=== PATIENT | male | born 1960 | race Caucasian/White ===

== ENCOUNTER 2018-05-02 11:23 | Day surgery (SDC) | payer MEDICARE, MEDICAID, SELFPAY ==
[2018-05-02 11:52] VITALS: BP 140/90; PULSE 97; RESP 14; TEMP 36.2; O2SAT 97; BMI 42.7
[2018-05-02 12:10] LABS: Bedside Glucose 158 mg/dL (70-110)
--- NOTE | 2018-05-02 12:17 | HP.PCM_ITS ---
History and Physical Date of Admission: 05/02/18 HISTORY AND PHYSICAL ? Zafar Atkinson 1960 ? REFERRING PHYSICIAN: ??Steffi Antonio MD ? CHIEF COMPLAINT: ??colon consult ? HPI: The patient is a 58 year old male referred for endoscopy. ?Zafar notes no history of colon complaints. ?He denies any change in bowel habits, weight perrin ges, black tarry stools or abdominal pain. ?Denies family history colon cancer. ?Patient does note two past isolated instances of bright red blood that occurred with a bowel movement, noted on paper with wiping and in toilet bowel. ?States he went to the emergency department, was examined and told the bleeding was due to hemorrhoids. ?He was given a cream which he uses if these flare up. ?He denie s any recent blood or any anorectal pain with bowel movements. ? The patient ?notes no history of upper GI complaints. ?Zafar has not?undergone prior endoscopy. ?The patient is being seen by me today at the request of Dr. Antonio?for my opinion and advice regarding screening colonoscopy. ? Patient's past medical history is significant for abdominal aortic aneurysm for which he underwent surgery to repair one year ago. ?He states he did very well following his surgery. ?Additional medical history significant for diabetes mellitus, back injury, hyperlipidemia, hypertension, emphysema, obesity. ?He denies any chest pain or recent hospitalizations. ?Denies problems with sedation in the past. ? ? PAST MEDICAL HISTORY PAST MEDICAL HISTORY Diagnosis Date ? AAA (abdominal aortic aneurysm) (HCC) ? ? Back injury 2009 ? work related ? DM (diabetes mellitus) (HCC) ? ? Former smoker ? ? HTN (hypertension) ? ? Hyperlipidemia ? ? Morbid obesity (HCC) ? ? Other emphysema (HCC) ? ? mild Emphysema ? Spondylosis, lumbosacral ? ? L4-L5 ? PAST SURGICAL HISTORY PAST SURGICAL HISTORY Procedure Laterality Date ? CARPAL TUNNEL ? 90's ? bilateral ? INCISE FINGER TENDON SHEATH Left 08/28/2016 ? Left middle and ring trigger finger releases ? REM LESIO TRUNK,ARM,LEG 1.1 -2.0CM ? 03/02/14 ? Exc. lesion left back/ablate left posterior ear ? ? ? CURRENT MEDICATIONS ? Current Outpatient Prescriptions: losartan (COZAAR) 50 mg tablet Take 1 tablet by mouth once daily. losartan (COZAAR) 50 mg tablet Take 1 tablet by mouth once daily. Hydrochlorothiazide 12.5 mg capsule Take 1 capsule by mouth once daily. cyclobenzaprine (FLEXERIL) 10 mg tablet Take 1 tablet by mouth twice daily as needed. metoprolol tartrate, short acting, (LOPRESSOR) 25 mg tablet Take 0.5 tablets by mouth every 12 hours. metFORMIN ER (GLUCOPHAGE XR) 500 mg 24 hr tablet Take 2 tablets by mouth twice daily. tiZANidine (ZANAFLEX) 4 mg tablet Take 1 tablet by mouth every 8 hours as needed (muscle spasms). EPINEPHrine (EPIPEN 2-NAZ) 0.3 mg/0.3 mL auto-injector Inject 0.3 mL intramuscularly as needed. liraglutide (VICTOZA 2-NAZ) 0.6 mg/0.1 mL (18 mg/3 mL) pnij Inject 1.2 mg subcutaneously once daily. ranitidine (ZANTAC) 150 mg tablet Take 1 tablet by mouth twice daily. gabapentin (NEURONTIN) 300 mg capsule Take 2 capsules by mouth daily at bedtime for 90 days. amLODIPine (NORVASC) 2.5 mg tablet Take 1 tablet by mouth once daily. pantoprazole DR (PROTONIX) 40 mg tablet Take 1 tablet by mouth once daily. Lovastatin 40 mg tablet Take 2 tablets by mouth daily at bedtime. For cholesterol. Clobetasol Propionate 0.05 % gel Apply 1 application to affected area once daily. lidocaine (LIDODERM) 5 % Apply 1 Patch as directed every 12 hours. Remove old patch prior to placing new patch. Location: lower back and right hip COMPOUNDED PRESCRIPTION Diabetic shoes- I pair selenium sulfide (SELSUN BLUE) 1 % sham Apply 1 application to affected area once daily. hydrocortisone (ALA-MELISSA) 1 % cream Apply 1 application to affected area twice daily. oxyCODONE IR (ROXICODONE) 5 mg immediate release tablet Take 1-2 tablets by mouth every 3 hours as needed. blood sugar diagnostic (FREESTYLE LITE STRIPS) test strip Use as instructed 6-8 times daily DX 250.00 Blood-Glucose Meter (FREESTYLE LITE METER) monitoring kit 1 Each as needed. DX 250.00 Lancets lancets Use as instructed 6-8 times daily DX 250.00 aspirin, enteric coated 81 mg EC tablet Take 81 mg by mouth once daily. ? No current facility-administered medications for this visit. ? ALLERGIES: Naprosyn [Naproxen]; Lisinopril-Hydrochlorothiazide ? PERSONAL HISTORY: SOCIAL HISTORY Social History ??Marital status: ?Spouse name: ?Years of education: ?Number of children: ? Social History Main Topics ??Smoking status: Former Smoker ?Packs/day: 1.00 ?Years: 32.00 ?Types: Cigarettes ?Quit date: 10/02/2011 ??Smokeless tobacco: Never Used ?Alcohol use: No ?Drug use: No ?Sexual activity: Yes ?Partners with: Male ? FAMILY HISTORY: FAMILY HISTORY FAMILY HISTORY Problem Relation Age of Onset ? Diabetes Mother ? ? Prostate Cancer Father ? ? Diabetes Maternal Grandmother ? ? Diabetes Sister ? ? Diabetes Son ?HTN ? ? REVIEW OF SYMPTOMS: ??The review of systems data was entered by the nurse and reviewed by me ? Nursing Notes: Domingo Granados LPN ?02/23/2018 10:23 AM ?Signed REVIEW OF SYSTEMS: ?General:???The patient denies fatigue, denies weight loss, denies weight gain, denies feeling hot, and denies feelings of cold. ?Eyes: ?The patient denies glaucoma, denies eye injury/surgery, wears glasses or contacts. ?Ear/Nose/Throat: ?The patient denies allergies, denies hayfever, denies ear infections, and denies bloody noses. ?Cardiovascular: ?The patient denies chest pain, denies heart disease, NOTES high blood pressure,denies cardiac stent, denies prior heart attack, denies irregular heart beat, NOTES high cholesterol, ?denies poor circulation, denies heart failure, other cardiac issues, denies claudication, denies cold feet, denies peripheral arterial stent. ?Respiratory: ?The patient denies tuberculosis, denies pneumonia, denies frequent cough, denies pulmonary embolism, denies shortness of breath, and denies coughing up blood. ?Gastrointestinal: ?The patient denies difficulty swallowing, denies acid reflux, denies ulcers, denies vomiting, denies jaundice/hepatitis, denies gallbladder problems, denies black or tarry stools, NOTES hemorrhoids, denies bleeding from rectum, denies diverticulitis, NOTES constipation, NOTES diarrhea, denies loss of stool control, and denies hernias. ?Kidney/Bladder: ?The patient denies kidney stones, denies urine infections, and denies bloody urine. ?Skin: ?The patient denies a history of skin cancer, denies bleeding/changing moles, and denies a history of skin rash. ?Neurologic: ?The patient denies a history of epilepsy/convulsions, denies headaches, denies head/spinal injuries, and denies stroke/TIA. ?Psychiatric: ?The patient denies psychiatric medications, denies depression, and denies voices, denies substance abuse. ?Endocrine: ?The patient denies thyroid disorders, NOTES diabetes, and denies hormonal problems. ?Hematologic: ?The patient denies a history of bruising, denies bleeding, and denies anemia, denies blood clots. ?Infections: ?The patient denies a history of measles and mumps, denies rheumatic fever, and denies sexually transmitted diseases. ?Musculoskeletal: ?The patient NOTES back pain/injury, NOTES back problems, denies sciatica, denies knee/foot trouble, denies arthritis, or denies gout. ? ? When was patient's last Mammogram screening? N/A ? ?Last Colonoscopy: ?na ? Domingo Granados LPN? I have confirmed and edited as necessary, the PFSH and ROS obtained by others. ? ? PHYSICAL EXAMINATION: ? General: ?The patient is 58 year old male, well nourished, well hydrated in no acute distress. ?The patient is oriented to time, place, and person. ? VITALS: Blood pressure 122/70, pulse 96, weight 133.4 kg (294 lb).?Body mass index is 41.59 kg/m?.? ? HEENT: ?Normal cephalic, ataumatic, pupils are equally round, sclera are anicteric, mucous membranes are moist, oropharynx is clear. ?Neck has no masses, asymmetry or lymphadenopathy. ? ? Respiratory: ?Clear to auscultation and percussion. ?Normal respiratory excursion and pattern. ? Cardiac: ?Examination is regular rate and rhythm. ? Abdominal exam: ?Soft, nontender, ?with no palpable masses. ?No hepatosplenomegaly. ?No palpable hernias. ? Rectal exam: exam deferred ? Extremities: ?no clubbing, cyanosis or edema. ?No adenopathy. ? Other: ? LABORATORY VALUES: As Noted ? RADIOLOGIC STUDIES: ?As Noted ? Assessment ? IMPRESSION: encounter for screening colonoscopy. ?History of hemorrhoids ? PLAN: ?We will?plan for?perform lower?endoscopy, to be done with MAC due to medical comorbidities. ??We discussed the risks and benefits of the planned endoscopy. ?I have informed the patient that complications can occur including failure to complete the endoscopy and perforation. ?The patient had the opportunity to ask questions concerning the planned endoscopy. ?My staff has also explained the procedure to the patient in understandable terms and has given the patient printed material concerning the procedure. ?The patient freely consents to surgery. ? I plan to use golytely bowel preparation for endoscopy ? The patient has medical comorbidities for which I plan to perform the procedure under monitored anesthetic care. ? Diagnoses: (Z12.11) Encounter for screening for malignant neoplasm of colon ?(primary encounter diagnosis) ? My findings have been communicated to Dr. Antonio?via shared medical record. ?This note will be forwarded to Dr. STEFFI ANTONIO MD. ?? Return to Clinic: The patient is instructed to follow-up with me 1 week post operatively. ? Josee Houston PA-C
--- NOTE | 2018-05-02 12:30 | COLBX_PTH ---
PATIENT: BRAEDEN SAAVEDRA Jr. LOC: EN U#:[id number] AGE/SX: 58/M ROOM: RE05/02/[address]: Dr. Mp Barajas MD : 1960 BED: DIS: 05/02/2018 SPEC #: [id number] RECD: 05/02/18 15:14 STATUS: DEAN DOMINIC #: [id number] ELENA: 05/02/18 12:[address]: Mp Barajas DEPT: SURGICAL PATHOLOGY RECD BY: Everette Gonzalez ENTERED: 05/03/18 11:02 SP TYPE: COLON BX OTHR DR: Dr. Marga Pérez MD Tissues: Transverse colon Procedures: Surgery Specimen Level IV HEADER OPERATION: Colonoscopy (MAC) PRE-OP DIAGNOSIS: Screening TISSUE SUBMITTED: Distal transverse colon polyp MICROSCOPIC DIAGNOSIS Distal transverse colon polyp, biopsy: Fragments of colonic mucosa with hyperplastic change. Focal changes consistent with inflammatory polyp. AM:scott 11/14/18 MICROSCOPIC DESCRIPTION Slides are reviewed. GROSS DESCRIPTION Received is one container labeled with the patient name and designated distal transverse colon polyp. The specimen consists of multiple irregular fragment of light roy soft tissue that together measure 0.6 x 0.5 x 0.3 cm. The specimen is totally submitted in one cassette. KIMBERLY:scott 05/03/18 TC: 5 CPT: 41797
[2018-05-02 13:26] VITALS: BP 107/62; BP 140/90; PULSE 91; RESP 16; TEMP 36.4; O2SAT 96
--- NOTE | 2018-05-02 13:28 | OP.ENDO_ITS ---
Patient Name: Zafar Atkinson Procedure Date: 05/02/2018 12:58 PM Date of : 1960 Age: 58 Procedure: Colonoscopy Indications: Screening for colorectal malignant neoplasm Providers: Mp Barajas MD Medicines: Monitored Anesthesia Care Patient Profile: This is a 58 year old male. Refer to note in patient chart for documentation of history and physical. Last Colonoscopy: none. The patient's first colonoscopy is today. Complications: No immediate complications. Procedure: Pre-Anesthesia Assessment: - Prior to the procedure, a History and Physical was performed, and patient medications and allergies were reviewed. The patient is competent. The risks and benefits of the procedure and the sedation options and risks were discussed with the patient. All questions were answered and informed consent was obtained. Patient identification and proposed procedure were verified by the physician, the nurse and the brake lining finisher asbestos in the procedure room. Mental Status Examination: alert and oriented. Airway Examination: normal oropharyngeal airway and neck mobility. Respiratory Examination: clear to auscultation. CV Examination: normal. Prophylactic Antibiotics: The patient does not require prophylactic antibiotics. Prior Anticoagulants: The patient has taken no previous anticoagulant or antiplatelet agents. ASA Grade Assessment: III - A patient with severe systemic disease. After reviewing the risks and benefits, the patient was deemed in satisfactory condition to undergo the procedure. The anesthesia plan was to use monitored anesthesia care (MAC). Immediately prior to administration of medications, the patient was re-assessed for adequacy to receive sedatives. The heart rate, respiratory rate, oxygen saturations, blood pressure, adequacy of pulmonary ventilation, and response to care were monitored throughout the procedure. The physical status of the patient was re-assessed after the procedure. After I obtained informed consent, the scope was passed under direct vision. Throughout the procedure, the patient's blood pressure, pulse, and oxygen saturations were monitored continuously. The Colonoscope was introduced through the anus and advanced to the cecum, identified by the appendiceal orifice, ileocecal valve and palpation. The colonoscopy was performed without difficulty. The patient tolerated the procedure well. The quality of the bowel preparation was good. Scope In: 1:10:41 PM Scope Withdrawal Time 0 hours 8 minutes 30 seconds Scope Out: 1:22:53 PM Total Procedure Duration Time 0 hours 12 minutes 12 seconds Findings: The perianal and digital rectal examinations were normal. A 8 mm polyp was found in the distal transverse colon. The polyp was sessile. The polyp was removed with a hot snare. Resection and retrieval were complete. The exam was otherwise without abnormality. The retroflexed view of the distal rectum and anal verge was normal and showed no anal or rectal abnormalities. Impression: - One 8 mm polyp in the distal transverse colon, removed with a hot snare. Resected and retrieved. - The examination was otherwise normal. - The distal rectum and anal verge are normal on retroflexion view. Recommendation: - Discharge patient to home. - Resume previous diet. - Continue present medications. - Telephone physician machine operator assistant for pathology results in 1 week. - Repeat colonoscopy is recommended. The colonoscopy date will be determined after pathology results from today's exam become available for review. Procedure Code(s): --- Professional --- 58015, Colonoscopy, flexible; with removal of tumor(s), polyp(s), or other lesion(s) by snare technique CPT copyright 2017 [employer]. All rights reserved. The codes documented in this report are preliminary and upon bag valver review may be revised to meet current compliance requirements. Mp Barajas MD 05/02/2018 1:28:31 PM This report has been signed electronically. Number of Addenda: 0 Note Initiated On: 05/02/2018 12:58 PM
[2018-05-02 13:30] VITALS: BP 104/91; BP 140/90; PULSE 98; RESP 16; O2SAT 95
[2018-05-02 13:35] VITALS: BP 129/66; BP 140/90; PULSE 97; RESP 16; O2SAT 95
[2018-05-02 13:41] VITALS: BP 134/85; BP 140/90; PULSE 91; RESP 16; TEMP 36.5; O2SAT 96
[2018-05-02 13:59] VITALS: BP 140/90
== END 2018-05-02 14:12 | disposition home or self-care (01) ==
LOC: EN 11:28 → AC 11:29
PROVIDERS: Family Provider Internal Medicine; PCP Internal Medicine; Referring Provider Surgery; Visit Provider Surgery
PROC: 0DJD8ZZ Inspection of Lower Intestinal Tract, Via Natural or Artificial Opening Endoscopic (ICD-10-PCS; CPT 45378; principal; 2018-05-02 12:25)
DX: Z12.11 Encounter for screening for malignant neoplasm of colon (principal); K63.5 Polyp of colon; K21.9 Gastro-esophageal reflux disease without esophagitis; E11.9 Type 2 diabetes mellitus without complications; E78.5 Hyperlipidemia, unspecified; I10 Essential (primary) hypertension; Z87.891 Personal history of nicotine dependence; E66.01 Morbid (severe) obesity due to excess calories; Z68.41 Body mass index [BMI] 40.0-44.9, adult; J43.8 Other emphysema; Z79.84 Long term (current) use of oral hypoglycemic drugs; Z79.82 Long term (current) use of aspirin; Z79.891 Long term (current) use of opiate analgesic; Z79.899 Other long term (current) drug therapy
CPT/HCPCS: 45384; 82962; 88305; J7120

== ENCOUNTER 2018-09-21 22:16 | Emergency (ER) | payer MEDICARE, MEDICAID, SELFPAY ==
[2018-09-21 22:18] VITALS: BP 160/81; PULSE 98; RESP 16; TEMP 36.6; O2SAT 92; BMI 43.2
--- NOTE | 2018-09-21 23:33 | ED.VISSUMM ---
- ER Visit Summary Date of Service: 09/21/18 Chief Complaint: [Sore throat] History of Present Illness: The patient is a 58 M [presents with a sore throat x3 or 4 days. Patient states he had a hard time sleeping last night secondary to pain. He has had no cough. He denies fever although subjectively he claims that he has felt hot. Patient denies any sick contacts. He denies ear pain. He denies congestion. Patient complains of painful swallowing of food and water.] Physical Examination: [HEENT-PERRLA, EOMI. Cranial nerves II through XII grossly intact. TMs clear. Mucous membranes moist. No adenopathy. Patient has some pharyngeal erythema. Tonsils are small and no exudates noted. Uvula is in the midline. No trismus. No tenderness over the trachea with movement. Cardiovascular-regular rate and rhythm without murmur or ectopy Lungs-clear to auscultation, chest wall stable without crepitus or subcu emphysema Abdomen-normoactive bowel sounds, soft, nontender, no rebound or rigidity, no peritoneal signs. Extremities-intact ?4, normal range of motion, normal pulses, atraumatic] Test Results: [Rapid strep screen was negative] Emergency Department Course and Treatment: Patient was medicated with amoxicillin and [place]. Patient had a throat culture sent. [] Treatment Plan: [Patient will be treated with amoxicillin and [place]. Patient understands this may be a viral illness and antibiotics may not help however there are other bacteria besides group A strep that could be responsible for his pharyngitis. Patient would prefer not to wait until culture results have returned to determine antibiotic usage.] Disposition: [Discharged home in stable condition. Patient advised to return if difficulty swelling on secretions or condition should worsen anyway.] Impression: [Pharyngitis-etiology uncertain] This note was generated with INNOBI dictation software. It may contain incorrect words, spelling, and punctuation that were not noted in review of the chart prior to signing ED Disposition - Plan for ED Patient: Referrals: Marga Pérez MD [Primary Care Provider] -
--- NOTE | 2018-09-21 23:36 | ED.DCSUM_ITS ---
- ER Visit Summary Date of Service: 09/21/18 Chief Complaint: [Sore throat] History of Present Illness: The patient is a 58 M [presents with a sore throat x3 or 4 days. Patient states he had a hard time sleeping last night secondary to pain. He has had no cough. He denies fever although subjectively he claims that he has felt hot. Patient denies any sick contacts. He denies ear pain. He denies congestion. Patient complains of painful swallowing of food and water.] Physical Examination: [HEENT-PERRLA, EOMI. Cranial nerves II through XII grossly intact. TMs clear. Mucous membranes moist. No adenopathy. Patient has some pharyngeal erythema. Tonsils are small and no exudates noted. Uvula is in the midline. No trismus. No tenderness over the trachea with movement. Cardiovascular-regular rate and rhythm without murmur or ectopy Lungs-clear to auscultation, chest wall stable without crepitus or subcu emphysema Abdomen-normoactive bowel sounds, soft, nontender, no rebound or rigidity, no peritoneal signs. Extremities-intact ?4, normal range of motion, normal pulses, atraumatic] Test Results: [Rapid strep screen was negative] Emergency Department Course and Treatment: Patient was medicated with amoxicillin and [place]. Patient had a throat culture sent. [] Treatment Plan: [Patient will be treated with amoxicillin and [place]. Patient understands this may be a viral illness and antibiotics may not help however there are other bacteria besides group A strep that could be responsible for his pharyngitis. Patient would prefer not to wait until culture results have r eturned to determine antibiotic usage.] Disposition: [Discharged home in stable condition. Patient advised to return if difficulty swelling on secretions or condition should worsen anyway.] Impression: [Pharyngitis-etiology uncertain] This note was generated with [employer] dictation software. It may contain incorrect words, spelling, and punctuation that were not noted in review of the chart prior to signing ED Disposition - Plan for ED Patient: Referrals: Marga Pérez MD [Primary Care Provider] -
--- NOTE | 2018-09-21 23:36 | ED.DEP ---
ED Disposition - Plan for ED Patient: Instructions: ED Pharyngitis Viral Report Pending Prescriptions: Hydrocodone Bitart/Apap 5-325 [Wilson 5MG-325MG] 1 tab PO Q4H PRN PRN 2 Days #10 tab PRN Reason: Pain Amoxicillin 500 mg PO TID #30 tab Referrals: Marga Pérez MD [Primary Care Provider] - 3-5 Days
[2018-09-21] MEDS: AMOXICILLIN 500 MG CAPSULE PO (23:56)
[2018-09-21] MEDS: HYDROcodone Bitartrate/Apap 5/325 Tablet PO (23:56)
[2018-09-21 23:58] VITALS: BP 147/70; PULSE 81; RESP 18; O2SAT 95
== END 2018-09-21 23:59 | disposition home or self-care (01) ==
PROVIDERS: Emergency Provider Emergency Medicine; Family Provider Internal Medicine; PCP Internal Medicine
DX: J02.9 Acute pharyngitis, unspecified (principal); E11.9 Type 2 diabetes mellitus without complications; Z79.84 Long term (current) use of oral hypoglycemic drugs
CPT/HCPCS: 87070; 87880; 99283

== ENCOUNTER 2019-03-03 19:05 | Emergency (ER) | payer MEDICARE, MEDICAID, SELFPAY ==
[2019-03-03 19:06] VITALS: BP 131/79; PULSE 91; RESP 17; TEMP 36.7; O2SAT 95; BMI 41.7
[2019-03-03 19:18] VITALS: O2SAT 96
--- NOTE | 2019-03-03 19:25 | ED.VIS.GEN ---
History of Present Illness Chief Complaint: Shortness of Breath Informant: Patient Narrative: Patient presents with increased cough and shortness of breath. This is been going on for about 2 weeks his family has had upper respiratory symptoms including himself however his did not resolve. He denies any fever chills, no nausea or vomiting. He did have a history of early COPD but quit smoking and has not had problems since Past Medical History - Allergies and Home Meds Allergies/Adverse Reactions: Allergies lisinopril Allergy (Verified 03/03/19 19:06) Hives naproxen Allergy (Verified 03/03/19 19:06) Hives Primary Care Physician: Marga Pérez MD [Primary Care Provider] - Past Medical History: - - Reviewed in [employer] Surgical History: - - Bilateral carpal tunnel surgery Smoking Status: Former smoker - Family History Paternal Family History: Reports: Cancer Maternal Family History: Reports: Cancer Review of Systems All systems negative except as indicated General: Denies: Fever Cardiovascular: Denies: Chest pain Respiratory: Reports: Dyspnea, Cough, Sputum Gastrointestinal: Denies: Abdominal pain, Nausea Musculoskeletal: Denies: Myalgias Skin: Denies: Rash Neurological: Denies: Headache, Weakness Physical Exam Vital Signs/Narrative: Vital Signs Temp Pulse Resp BP Pulse Ox 03/03/19 19:06 98.1 F 91 17 131/79 H 95 General: Well nourished, Well developed ENT: Moist mucous membranes Neck: Supple Cardiovascular: Regular rate, Regular rhythm Respiratory: No distress, - - Lungs are mostly clear, however I do appreciate some bronchial breath sounds Back: Nontender Extremities: No edema Skin: Normal color, No rash Neurological: Normal Strength, Normal Sensation Diagnostic/Tx/Re-eval - Rhythm Strip Rhythm Strip: Sinus Rhythm Rate: 83 Ectopy: None - EKG Initial EKG Interpretation: Sinus Rhythm, - - Normal HI normal QTC intervals. No ST changes. Normal EKG Interpreted by emergency doctor - Medical Decision Making Patient has a normal work-up. X-ray is negative. Patient received DuoNeb in the emergency department I will treat him with doxycycline and albuterol for home. He appears well he has normal vitals is not hypoxic and likely has bronchitis I am just worried about progression to pneumonia. Disposition discharge stable condition ED Disposition - Plan for ED Patient: Disposition: Home or Assisted Living Diagnosis: Bronchitis Instructions: BRONCHITIS, Antiobiotic Treatment (Adult) Prescriptions: Doxycycline 100 mg PO DAILY 10 Days #19 cap Prescription Printed Albuterol Inhaler [Ventolin Hfa] 2 puff INHALATION Q4H PRN PRN #1 inhaler PRN Reason: Wheezing Referrals: Marga Pérez MD [Primary Care Provider] - 3-5 Days if not improving
--- NOTE | 2019-03-03 19:30 | RAD_ITS ---
STUDY: X-RAY CHEST REASON FOR EXAM: Male, 59 years old. Cough and shortness of breath times one and half weeks TECHNIQUE: PA and lateral views of the chest. COMPARISON: Prior study of 11/22/2015 FINDINGS: athletic monitor leads are present. The lungs are clear and expanded. There is no demonstrated pleural abnormality. Normal size heart. Normal mediastinum and mercedes. Normal visualized pulmonary arteries. Normal visualized aortic arch and descending thoracic aorta. Normal visualized thoracic spine. Normal visualized ribs, clavicles, and shoulders. There is no demonstrated abnormality of the visualized soft tissue structures of the upper abdomen. RAD/Chest PA and Lateral IMPRESSION: Normal x-ray examination of the chest. Electronically Signed: Ernesto Turcios MD at 19:51 EDT , Service support ,
--- NOTE | 2019-03-03 19:30 | EKG12_ITS ---
Test Reason : SOB Blood Pressure : / mmHG Vent. Rate : 083 BPM Atrial Rate : 083 BPM P-R Int : 140 ms QRS Dur : 116 ms QT Int : 376 ms P-R-T Axes : 061 063 029 degrees QTc Int : 441 ms Normal sinus rhythm Normal ECG Confirmed by YANI CHEN, BONY ([id number]), department editor CE LOW ([id number]) on 03/07/2019 12:01:27 PM Referred By: GIOVANNY Confirmed By:SIMEON LOMELI MD
[2019-03-03] MEDS: Ipratropium/Albuterol Sulfate 3 ML AMPUL.NEB INHALATION (19:38)
[2019-03-03 19:39] VITALS: PULSE 80; RESP 14
[2019-03-03] MEDS: Doxycycline 100 MG CAPSULE PO (20:17)
[2019-03-03 20:19] VITALS: BP 126/81; PULSE 85; RESP 19; O2SAT 94
--- NOTE | 2019-03-04 13:24 | ED.RN ---
Verified rx order per [facility] request. Doxycycline 100mg bid x10 days # 19. Ver[address] Dr Suazo.
== END 2019-03-03 20:19 | disposition home or self-care (01) ==
PROVIDERS: Emergency Provider Emergency Medicine; Family Provider Internal Medicine; PCP Internal Medicine
DX: J40 Bronchitis, not specified as acute or chronic (principal); Z87.891 Personal history of nicotine dependence
CPT/HCPCS: 71046; 93005; 94640; 99283

== ENCOUNTER 2019-05-17 19:01 | Emergency (ER) | payer MEDICARE, MEDICAID, SELFPAY ==
[2019-05-17 19:02] VITALS: BP 139/83; PULSE 75; RESP 18; TEMP 36.4; O2SAT 96; BMI 41.5
--- NOTE | 2019-05-17 19:05 | ED.RN ---
PT NOW REPORTS CHEST PAIN, RESPIRATORY AWARE.
--- NOTE | 2019-05-17 19:10 | EKG12_ITS ---
Test Reason : CP Blood Pressure : / mmHG Vent. Rate : 082 BPM Atrial Rate : 082 BPM P-R Int : 134 ms QRS Dur : 106 ms QT Int : 378 ms P-R-T Axes : 060 065 050 degrees QTc Int : 441 ms Normal sinus rhythm Normal ECG Confirmed by MICHI MULLINS MD ([id number]), legal editor CE LOW ([id number]) on 05/19/2019 11:18:55 AM Referred By: MALISSA Confirmed By:MICHI MULLINS MD
[2019-05-17] MEDS: Orphenadrine 60 MG/2 ML Ampul IM (20:01)
[2019-05-17] MEDS: Ketorolac 60 MG/2 ML Vial IM (20:01)
--- NOTE | 2019-05-17 20:15 | RAD_ITS ---
STUDY: X-RAY - RIGHT SHOULDER REASON FOR EXAM: Male, 59 years old. Right shoulder and back pain TECHNIQUE: 4 view(s) of the shoulder. COMPARISON: None. FINDINGS: Normal glenohumeral articulation. Moderate arthrosis acromioclavicular joint. Normal acromion. Normal humeral head and visualized proximal humerus. The soft tissue structures are unremarkable. Normal visualized pulmonary apex. RAD/Shoulder min 2 Views IMPRESSION: No acute fracture or dislocation right shoulder. Electronically Signed: Rd Clark, at 20:41 EST Tel , Service support ,
--- NOTE | 2019-05-17 20:46 | ED.VISSUMM ---
- ER Visit Summary Date of Service: 05/17/19 Chief Complaint: Back pain, right shoulder pain History of Present Illness: The patient is a 59 M who complains of back pain and right shoulder pain. Yesterday he was lifting a large tote when he developed pain in his lower back. He also felt pain in his right shoulder. He states the pain is worse with movement. He has tingling of his right arm. He does have a history of back pain since 2009. He took nothing for this pain at home. He was on muscle relaxers in the past but has not taken any recently. Physical Examination: Vital signs reviewed. HEENT exam unremarkable. Heart is regular rate and rhythm. Lungs are clear. Abdomen soft. Back exam is tender in the diffuse lumbar region. His right shoulder is tender on the distal portion. He has painful range of motion of the back and shoulder. His neurologic exam is normal. Test Results: Right shoulder x-ray is unremarkable Emergency Department Course and Treatment: Patient was given Norflex and Toradol with improvement. I will send him home with naproxen and Flexeril. I discussed the possibility of a right shoulder ligamentous injury. He will need to follow-up with orthopedics for this. Treatment Plan: [] Disposition: Discharge Impression: Lumbosacral strain, right shoulder pain This note was generated with [employer] dictation software. It may contain incorrect words, spelling, and punctuation that were not noted in review of the chart prior to signing ED Disposition - Plan for ED Patient: Referrals: Marga Pérez MD [Primary Care Provider] -
--- NOTE | 2019-05-17 20:48 | ED.DEP ---
ED Disposition - Plan for ED Patient: Disposition: Home or Assisted Living Instructions: Back Sprain/Strain Prescriptions: cycloBENZAPRine HCl [Flexeril] 10 mg PO TID PRN #20 tab PRN Reason: Muscle Spasm Prescription Printed Naproxen [Naprosyn] 500 mg PO BID PRN #20 tab Prescription Printed Referrals: Marga Pérez MD [Primary Care Provider] -
[2019-05-17 20:57] VITALS: BP 144/80
== END 2019-05-17 20:58 | disposition home or self-care (01) ==
PROVIDERS: Emergency Provider Emergency Medicine; Family Provider Internal Medicine; PCP Internal Medicine
DX: S39.012A Strain of muscle, fascia and tendon of lower back, initial encounter (principal); M25.511 Pain in right shoulder; E11.9 Type 2 diabetes mellitus without complications; I10 Essential (primary) hypertension; X50.0XXA Overexertion from strenuous movement or load, initial encounter; Y93.89 Activity, other specified; Y92.89 Other specified places as the place of occurrence of the external cause; Y99.8 Other external cause status
CPT/HCPCS: 73030; 93005; 96372; 99283

== ENCOUNTER 2022-12-18 14:00 | Emergency (ER) | payer MEDICARE, MEDICAID, SELFPAY ==
[2022-12-18 14:01] VITALS: BP 129/78; PULSE 76; RESP 18; TEMP 36.2; O2SAT 93; BMI 41.8
--- NOTE | 2022-12-18 14:29 | EKG12_ITS ---
Test Reason : SYNCOPE Blood Pressure : / mmHG Vent. Rate : 076 BPM Atrial Rate : 076 BPM P-R Int : 146 ms QRS Dur : 122 ms QT Int : 398 ms P-R-T Axes : 050 061 033 degrees QTc Int : 447 ms Normal sinus rhythm Non-specific intra-ventricular conduction delay Borderline ECG Confirmed by SUSANNA CHEN, MICHI ([id number]), editorial manager SERAFIN KENNEDY ([id number]) on 12/21/2022 12:45:41 PM Referred By: RAJIV/TREV Confirmed By:MICHI MULLINS MD
--- NOTE | 2022-12-18 14:29 | CT_ITS ---
STUDY: CT BRAIN WITHOUT CONTRAST REASON FOR EXAM: Male, 62 years old. Dizziness RADIATION DOSAGE (If Supplied By Facility): CTDIvol = ( 44.99 ) mGy, DLP = ( 846.73 ) mGycm TECHNIQUE: Transaxial CT imaging of the brain was performed without administration of intravenous contrast material. Individualized dose optimization techniques were used for this CT. COMPARISON: No relevant priors. FINDINGS: Normal soft tissue structures. Normal calvarium. There is mild cerebral atrophy with widening of the extra-axial spaces and ventricular dilatation. Normal white matter tracts of the cerebral hemispheres. Normal basal ganglia and thalami. Normal brainstem. Normal cerebellum. There is no intracranial hemorrhage. There are no findings of an acute ischemic infarction. Normal visualized paranasal sinuses. CT/Brain/Head without Contrast IMPRESSION: Chronic involutional changes of the brain. Electronically Signed: Brendon Castillo MD at 15:34 EDT ,
--- NOTE | 2022-12-18 14:32 | EDS_ITS ---
HPI History of Present Illness Chief Complaint: Dizziness Detail of Chief Complaint: Room spinning with head movement. Informant: patient Onset/Context/Timing Onset: Days Context: Gradual Onset Timing: Intermittent Current Severity: Mild Maximum Severity: Mild Narrative Narrative: 62-year-old male history of prior AAA repair, diabetes and hypertension. Said on Wednesday he had dizziness when he is lying in bed and moved his head. Said it was room spinning. The clock was rotating about the room. No fall or head trauma. No significant head aches. No history of stroke or vertigo. Today she got better and he rode his motorcycle the other day. And is returned today. Denies any weakness to his upper or lower extremities. No new numbness. He does have numbness in his legs from prior back issues. That is not new or different. Denies any trouble with his speech. No trouble holding things or reaching for things. No acute visual change. Prior similar symptoms: No Recent Illness/Hospitalization: No [facility] Medical History Diabetes HTN (hypertension) Home Medications Lovastatin [Mevacor] 80 mg PO QHS 09/30/15 [History Last Taken 10/01/15] amlodipine 2.5 mg tablet 2.5 mg PO DAILY 09/30/15 [History Last Taken 10/02/15 08:00] aspirin 81 mg tablet,delayed release 81 mg PO DAILY@0800 09/30/15 [History Last Taken 04/30/18] metformin 1,000 mg tablet 1,000 mg PO BID 09/30/15 [History Last Taken 05/01/18 07:30] gabapentin 300 mg tablet,extended release 24 hr (Gralise) 600 mg PO QHS 11/08/15 [History Last Taken Unknown] Ranitidine [Zantac] 150 mg PO BID ##60 11/22/15 [Rx Last Taken Unknown] pantoprazole 40 mg tablet,delayed release 40 mg PO DAILY 12/06/15 [History Last Taken Unknown] hydrochlorothiazide 25 mg tablet 12.5 mg PO DAILY 04/29/18 [History Last Taken Unknown] losartan 50 mg tablet 50 mg PO DAILY 04/29/18 [History Last Taken Unknown] metoprolol tartrate 25 mg tablet 12.5 mg PO BID 04/29/18 [History Last Taken Unknown] tizanidine 4 mg tablet 4 mg PO BID 04/29/18 [History Last Taken Unknown] albuterol sulfate 90 mcg/actuation aerosol inhaler 2 puff inhalation Q4H PRN PRN Wheezing ##1 03/03/19 [Rx Last Taken Unknown] glimepiride 4 mg tablet 0.5 tab PO BID 03/03/19 [History Last Taken Unknown] cyclobenzaprine 10 mg tablet 10 mg PO TID PRN Muscle Spasm #20 tabs 05/17/19 [Rx Last Taken Unknown] naproxen 500 mg tablet 500 mg PO BID PRN #20 tabs 05/17/19 [Rx Last Taken Unknown] meclizine 25 mg chewable tablet (Antivert) 25 mg PO TID 7 days #21 tabs 12/18/22 [Rx Last Taken Unknown] Allergy/AdvReac Type Severity Reaction Status Date / Time lisinopril Allergy Hives Verified 12/18/22 14:03 naproxen Allergy Hives Verified 12/18/22 14:03 Social History Smoking Status: Former smoker ROS ROS ED Eyes Eyes: Denies blurry vision ENT ENT ED: Denies ear pain Cardiovascular Cardiovascular: Denies chest pain Respiratory/Chest Respiratory/Chest: Denies cough Gastrointestinal Gastrointestinal: Denies abdominal pain Genitourinary Genitourinary ED: Denies dysuria Musculoskeletal Musculoskeletal: Denies arthralgias Integumentary Denies abscess Neurologic Neurologic: Denies headache(s) Psychiatric Psychiatric: Denies anxiety Endocrine Endocrinology: Denies cold intolerance Hematologic/Lymphatic Hematologic/Lymphatic: Reports none Allergic/Immunologic Allergic/Immunologic ED: Denies mouth swelling or tongue swelling EXAM Physical Exam Narrative Exam Narrative: Well-appearing 62-year-old male. Vital signs stable afebrile. present at bedside. H EENT exam unremarkable. Given driving a delay. Extra motions are intact. He does have a significant amount of wax in his left ear none in the right. No facial droop. Normal speech. Neck nontender. Lungs clear to auscultation bilaterally. Heart regular rhythm rate about 72 no murmur. Chest wall nontender. Abdomen soft nontender. Moving all 4 extremities. 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 Dorsi plantarflexion intact. Neurologically is awake and alert with no focal motor deficits. Fingertip to nose within normal limits. NIH 0. Const Vital Signs: 12/18/22 14:01 12/18/22 14:01 Temperature 97.2 F L Temperature Source Temporal Pulse Rate 76 Respiratory Rate 18 Respiratory Pattern Normal Blood Pressure 129/78 H Blood Pressure Mean 95 Pulse Ox 93 Oxygen Delivery Method Room Air Positive well nourished, well developed and obese; Negative for cachectic, contractures or unkempt General Appearance ED: well developed; Negative for unkempt, cachectic or contractures Nutritional Appearance: obese; Negative for cachectic HEENT Reports moist mucous membranes; Denies dry mucous membranes Negative for trauma or tenderness Mouth ED: No dry mucous membranes Mouth: No dry mucous membranes Eyes PERRL and EOMs intact bilaterally General Eye ED: Negative for pale conjunctiva or scleral icterus Neck no lymphadenopathy, supple and no JVD General: Negative for tenderness Lymph Lymphatic: Negative for other Chest Wall inspection of chest normal and palpation of chest normal Chest: Negative for other Resp normal respiratory effort and clear to auscultation bilaterally Effort and Inspection: Negative for retractions Auscultation: Negative for rales, rhonchi or wheezes Cardio regular rate, regular rhythm, S1 normal heart sound, S2 normal heart sound and no murmurs GI normal to inspection, nondistended, normoactive bowel sounds, non-tender, non- distended and no masses Inspection: Negative for abdominal distention Auscultation: normoactive bowel sounds Palpation: soft; Negative for tender or guarding Back/Spine no CVA tenderness General Back: Negative for CVA tenderness Cervical Spine: Negative for cervical spine tenderness Thoracic Spine / Upper Back: Negative for thoracic spinal tenderness Lumbar Spine / Lower Back: Negative for lumbar spinal tenderness Extremity normal to inspection General Extremety ED: Negative for edema or tenderness General Extremity: Negative for edema Neuro oriented x3 and CN's II-XII intact bilaterally Neuro Narrative: Neurologic exam normal. NIH 0. Normal speech. No facial droop. Extra motions are intact. Bilateral 5/5 mine car dispatcher strength. Dorsi plantarflexion intact. Fingertip to nose within normal limits. Sensorium / Orientation: alert; Negative for orientation impaired Motor Exam: strength 5/5 throughout; Negative for general weakness or strength abnormal Psych mental status grossly normal Appearance: Negative for unkempt Attitude: No agitated Mood & Affect: Negative for depressed Skin no rashes or lesions noted, no wounds and skin turgor normal General Skin Exam: Negative for elasticity normal Lesions: No lesion noted Rashes: No rashes noted Trauma: Negative for abrasion Wounds: Negative for wounds noted MDM MDM MDM Narrative Medical decision making narrative: 62-year-old with vertigo-like symptoms. No signs of stroke at this time. Does have wax in his left ear that will be irrigated due to possible impaction causing his symptoms. CAT scan and labs will be obtained. At this time there is no signs of stroke. Repeat exam at 4:19 PM patient doing well. Hallpike negative at this time. He feels better after the Antivert medication. We went over his test results. I reviewed his left ear there is still a significant mount of wax the nurse irrigated out when she could. He will be discharged home with Debrox eardrops. Follow-up with his physician. Return if he has any other symptoms. Currently his repeat neurologic exam is normal. His NIH is 0. History & Record Review Discussion w/independent historian: Patient Lab Data Attestation: I reviewed the patient's lab results. Lab results narrative: CBC unremarkable. White count of 6. H&H 16 and 47. Platelets 215. CAT scan of the brain shows chronic changes no acute process. Read by the radiologist. Chemistries show sodium 134 gap of 4. Normal BUN and creatinine. Glucose 121. Labs: Laboratory Results - last 24 hr 12/18/22 14:40 WBC 6.6 RBC 5.48 Hgb 16.0 Hct 47.7 MCV 87.0 MCH 29.2 MCHC 33.5 RDW Std Deviation 41.9 RDW Coeff of Anthony 13.4 Plt Count 215 MPV 9.6 Immature Gran % (Auto) 0.800 Neut % (Auto) 65.7 Lymph % (Auto) 19.7 [place] % (Auto) 10.0 Eos % (Auto) 3.0 Baso % (Auto) 0.8 Absolute Neuts (auto) 4.3 Absolute Lymphs (auto) 1.30 Nucleated RBC % 0 Sodium 134 L Potassium 4.0 Chloride 104 Carbon Dioxide 26.0 Anion Gap 4 L BUN 15 Creatinine 0.97 Estim Creat Clear Calc 83.62 Est GFR (MDRD) Af Amer 102 Est GFR (MDRD) Non-Af 84 BUN/Creatinine Ratio 15.5 Glucose 121 H Calcium 10.3 H Radiography Diagnostic Testing: Clinical Impression(s) from Imaging Studies Brain CT 12/18/22 14:29 IMPRESSION: Chronic involutional changes of the brain. Electronically Signed: Brendon Castillo MD at 15:34 EDT , Rhythm Strip Rhythm Strip: Sinus Rhythm Rate: 76 Ectopy: None EKG Initial EKG: Attestation: I personally reviewed and interpreted this EKG as follows: Interpretation: Sinus Rhythm and No Acute Injury Pattern Comments: Normal sinus rhythm rate of 76 no acute signs of NE or ischemia. Nonspecific interventricular conduction delay. Discharge Plan Triage Chief Complaint: Dizziness ED Provider: Forest Marcial Dx/Rx/DC Orders Clinical Impression: Vertigo, History of hypertension, History of diabetes mellitus Instructions: ED BPV Vertigo Prescriptions: New meclizine [Antivert] 25 mg tablet,chewable 25 mg PO TID 7 Days Qty: 21 0RF Rx Instructions: Use 3 times a day for the next 2 days. Then use as needed. No Action amlodipine 2.5 MG tablet 2.5 mg PO DAILY Patient Comments: BLOOD PRESSURE aspirin 81 MG tablet 81 mg PO DAILY@0800 Patient Comments: HEART HEALTH metformin 1,000 MG tablet 1,000 mg PO BID Patient Comments: DIABETES Lovastatin [Mevacor] 40 MG tablet 80 mg PO QHS Patient Comments: CHOLESTEROL LOWERING gabapentin [Gralise] 300 MG tablet extended release 24 hr 600 mg PO QHS Ranitidine [Zantac] 150 MG tablet 150 mg PO BID Qty: 60 0RF pantoprazole 40 MG tablet 40 mg PO DAILY losartan 50 MG tablet 50 mg PO DAILY tizanidine 4 MG tablet 4 mg PO BID hydrochlorothiazide 25 MG tablet 12.5 mg PO DAILY metoprolol tartrate 25 MG tablet 12.5 mg PO BID glimepiride 4 tablet 0.5 tab PO BID albuterol sulfate 1 INHALER inhaler 2 puff inhalation Q4H PRN PRN (Reason: Wheezing) Qty: 1 0RF cyclobenzaprine 10 MG tablet 10 mg PO TID PRN (Reason: Muscle Spasm) Qty: 20 0RF naproxen 500 MG tablet 500 mg PO BID PRN Qty: 20 0RF Primary Care Provider: Marga Pérez Referrals: Marga Pérez MD [Primary Care Provider] - 3-5 Days if not improving Activity Restrictions/Additional Instructions: Return if getting a lot worse, trouble using her arms or legs or difficulty with speech. At this time there is no signs of stroke. This appears to be vertigo. Use the medication Antivert 3 times a day the next 2 days then as needed. Return if worse. Follow-up with your doctor as needed. Disposition Disposition: Home, Self Care
[2022-12-18] MEDS: Meclizine HCl 25 MG Tablet PO (14:42)
[2022-12-18] MEDS: Carbamide Peroxide 15 ML Bottle 5 DRP OTIC (14:43)
[2022-12-18 14:48] LABS: Absolute Neutrophil Count 4.3 X10^3/uL (2.0-7.7); Basophil# 0.05 X10^3/uL; Basophil% 0.8 % (0-1); Hematocrit 47.7 % (40-54); Lymphocyte % 19.7 % (19-41); Mean Corp Hgb Conc 33.5 g/dL (32-36); Mean Corpuscular Hgb 29.2 pg (27.0-32.0); Mean Platelet Vol. 9.6 fl (6.2-12.0); Monocyte# 0.66 X10^3/uL; NRBC Flagged by Analyzer 0 % (0-5); Neutrophil # 4.34 X10^3/uL (2.7-7.7); Neutrophil % 65.7 % (47-70); Platelet Count 215 K/mm3 (150-450); RBC Distribution Width CV 13.4 % (11.6-14.6); RBC Distribution Width SD 41.9 fl (35.1-43.9); Red Blood Count 5.48 M/mm3 (4.6-6.2); White Blood Count 6.6 K/mm3 (4.4-11.0)
[2022-12-18 16:01] VITALS: BP 138/76; PULSE 78; RESP 14; O2SAT 99
[2022-12-18 16:17] LABS: Anion Gap 4 (5-15); BUN 15 mg/dL (7-18); BUN/Creat Ratio 15.5 RATIO (10-20); Calcium,Total 10.3 mg/dL (8.5-10.1); Chloride 104 mmol/L (98-107); Creatinine, Serum 0.97 mg/dL (0.70-1.30); EST Glomerular Filtration Rate 84 mL/min (>60); Est Glom Filt Rate - Afr Amer 102 mL/min (>60); Estimated Creatinine Clearance 83.62 ml/min; Glucose 121 mg/dL (74-106); Sodium Level 134 mmol/L (136-145)
== END 2022-12-18 16:29 | disposition home or self-care (01) ==
PROVIDERS: Emergency Provider Emergency Medicine; PCP Internal Medicine; Visit Provider Emergency Medicine
DX: R42 Dizziness and giddiness (principal); E11.9 Type 2 diabetes mellitus without complications; I10 Essential (primary) hypertension; Z87.891 Personal history of nicotine dependence; E66.9 Obesity, unspecified
CPT/HCPCS: 70450; 80048; 85025; 93005; 99283; A4216

== ENCOUNTER → 2023-05-03 | Outpatient (CLI) | payer MEDICARE, MEDICAID, SELFPAY | END | disposition home or self-care (01) | LOC: SL 13:49 | PROVIDERS: PCP Internal Medicine; Visit Provider Internal Medicine | DX: Z00.00 Encounter for general adult medical examination without abnormal findings (principal) ==

== ENCOUNTER 2024-08-19 12:02 | Inpatient (IN) | payer MEDICARE, SELFPAY ==
[2024-08-19] VITALS (18 sets, daily range): BP systolic 118–146; BP diastolic 57–88; PULSE 66–122; RESP 18–32; TEMP 36.5–38.8; O2SAT 90–96; BMI 43.9; BMI 43.3
--- NOTE | 2024-08-19 12:12 | RAD_ITS ---
PROCEDURE: CHEST 1 VIEW (PORTABLE) REASON FOR EXAM: Cough TECHNIQUE: Frontal view of the chest COMPARISON: 03/03/2019. FINDINGS: The heart size is normal. The mediastinal contour is unremarkable. Left lower lung zone opacity Degenerative changes are identified within the thoracic spine. RAD/Chest 1 View (Portable) IMPRESSION: Left lower lobe pneumonia Reading Location: [facility]
--- NOTE | 2024-08-19 12:12 | EKG12_ITS ---
Test Reason : sob Blood Pressure : */* mmHG Vent. Rate : 117 BPM Atrial Rate : 117 BPM P-R Int : 134 ms QRS Dur : 110 ms QT Int : 364 ms P-R-T Axes : 57 47 34 degrees QTcB Int : 507 ms Sinus tachycardia Otherwise normal ECG Confirmed by Geoff Patricia ([id number]), newspaper copy editor LORETO AGARWAL ([id number]) on 08/21/2024 7:01:25 AM Referred By: Confirmed By: Geoff Patricia
[2024-08-19] MEDS: Acetaminophen 500 MG Tablet 1000 MG PO (12:20)
[2024-08-19] MEDS: 0.9% Normal Saline (1000mL) 1,000 ML 999 ML IV ×5 (12:20→20:28)
--- NOTE | 2024-08-19 12:28 | EDS_ITS ---
<Statement entered by Jam Moran DO - 08/21/24 11:36> Patient was seen and examined with nurse salvatore Whitmore All components of the history and physical confirmed and agreed. History of present illness and physical exam: Patient is a 64-year-old male with past medical history of hypertension, hyperlipidemia, AAA repair, diabetes who presented to the emergency department chief complaint of cough fever chills nausea vomiting and diarrhea for the last 3 days. According to EMS when they arrived he was noted to be hypoxic and had increased work of breathing they placed him on oxygen and states that is not normally on this. Patient denies any recent contacts. Review of systems: Agree with above Physical exam: Agree with above MDM Patient is a 64-year-old female who presents to the Emergency Department via EMS with a chief complaint of hypoxia, cough, generalized not feeling well. On the differential diagnose includes but limited to pneumonia, ACS, press for infection secondary to viral etiology. Once workup is obtained and reviewed he will be reevaluated. Patient CBC was significant for leukocytosis of 17,000, hemoglobin stable 15.4, plate count was 188. Patient sodium was 130, potassium normal 3.8, creatinine was 1.20. Patient lactic acid elevated 2.6, glucose was noted to be 333. Patient's chest x-ray reviewed by myself and by radiology showed a left lower lobe pneumonia. Patient was given Rocephin and azithromycin as well as a 30 cc/kg bolus of IV fluids. This point time patient was admitted to the hospital after discussion with hospitalist by nurse salvatore Whitmore. Patient was notified is agreed this plan all question concerns answered at bedside. Final impression: Pneumonia Lactic acidosis Acute hypoxic respiratory failure Disposition: Patient will be admitted to the hospital for further evaluation management Supervising attending attestation: Jam Moran D.O. [facility] History of Present Illness Chief Complaint: Chest Pain Narrative Narrative: Patient is a 64-year-old male with history of obesity, hypertension hyperlipidemia, AAA repair, diabetes who presents to the [facility] apartment with 3 days of worsening cough, fever chills nausea, diarrhea. Patient arrives via EMS, hypoxic, tachypneic, fever. Patient states he is so weak that he cannot do anything. Patient denies any sick contacts. Patient states he did have some blood-tinged sputum. Patient complains of full body pain as well as headache. [facility] Medical History Diabetes HTN (hypertension) Home Medications ?Medication ?Instructions ?Recorded ?Last Taken ?Type amlodipine 2.5 mg tablet 2.5 mg PO DAILY 09/30/15 08:00 History aspirin 81 mg tablet,delayed 81 mg PO DAILY@0800 09/2904/30/18 History release metformin 1,000 mg tablet 1,000 mg PO BID 09/30/1505/08 07:30 History gabapentin 300 mg tablet,extended 600 mg PO QHS Unknown History release 24 hr (Gralise) pantoprazole 40 mg tablet,delayed 40 mg PO DAILY 12/05 Unknown History release hydrochlorothiazide 25 mg tablet 12.5 mg PO DAILY 03/08 Unknown History losartan 50 mg tablet 50 mg PO DAILY 04/29/18 Unkn own History metoprolol tartrate 25 mg tablet 12.5 mg PO BID Unknown History albuterol sulfate 90 mcg/actuation 2 puff inhalation Q 4H PRN PRN 03/03/19 Unknown Rx aerosol inhaler Wheezing ##1 naproxen 500 mg tablet 500 mg PO BID PRN #20 tabs 1 07/17/18 Unknown Rx dulaglutide 4.5 mg/0.5 mL 4.5 mg subcut QWEEK 08/19/24 Unknown History subcutaneous pen injector (Trulicity) glimepiride 1 mg tablet 1 mg PO BID 08/19/24 Unknown History lovastatin 40 mg tablet 80 mg PO QHS cholesterol 07/15 Unknown History meclizine 25 mg chewable tablet 25 mg PO TID PRN dizzi ness 08/19/24 Unknown History (Antivert) Allergy/AdvReac Type Severity Reaction Status Date / Time lisinopril Allergy Hives Verified 12/18/22 14:03 naproxen Allergy Hives Verified 12/18/22 14:03 Social History Smoking Status: Unknown if ever smoked ROS ROS ED ROS Narrative Constitutional: Negative for , weight loss.positive for fever, chills, weakness Eyes: Negative for vision loss, vision change, double vision ENT: Negative for any sore throat, ear pain, congestion Cardiovascular: Negative for any chest pain, tightness, palpitations Respiratory: Positive for any cough, sputum production, hemoptysis, dyspnea, dyspnea on exertion, orthopnea Gastrointestinal: Negative for any abdominal pain, nausea, vomiting, constipation, blood in stool, blood in vomit. Positive diarrhea : Negative for any urinary frequency, dysuria, retention, blood in urine Muscle skeletal: Negative for any neck pain, back pain. Positive myalgias Neurological: Negative for any syncope, dizziness. Positive for headache Skin: Negative for any rashes, itching, abrasions, lacerations Psychiatric: Negative for any depression, anxiety, stress, suicidal ideation, homicidal ideation Hematologic: Negative for any excessive bruising, easy bleeding EXAM Physical Exam Narrative Exam Narrative: Vital signs reviewed. Patient is tachycardic, febrile, patient does seem to be tachypneic, on 5 L nasal cannula oxygen. HEET: Head normocephalic atraumatic, TMs clear bilaterally. Posterior pharynx is clear, moist mucous membranes. Nares clear bilaterally. Neck: Supple with no lymphadenopathy or tenderness. No signs of meningismus. Cardiac: Tachycardic rate, no murmurs gallops or rubs, equal peripheral pulses bilaterally. Respiratory: Expiratory wheezes to the bilateral lower lung bases, slight rhonchorous breath sounds. No chest tenderness. Abdomen: Soft, nontender, nondistended. No abdominal bruit or pulsatile masses. No hepatosplenomegaly Extremities: No peripheral edema, no signs of gross trauma or deformity. Active full range of motion of all extremities. Neuro: Cranial nerves II through XII intact, no focal neurological deficits. Skin: Clean dry and intact with no rash, purpura, petechiae, vesicles or pustules. Warm to the touch Backs/flank: No CVA tenderness, no midline spinal tenderness, no deformity. Psych: Normal mood and affect. No SI, HI or acute psychosis. Const Vital Signs: 08/19/24 12:03 08/19/24 12:08 08/19/24 12:24 Temperature 102 F H 102 F H Temperature Source Oral Oral Pulse Rate 121 H 121 H Respiratory Rate 32 H 30 H Blood Pressure 131/70 H 131/70 H Blood Pressure Mean 90 90 Pulse Ox 92 90 Oxygen Delivery Method Nasal Cannula Nasal Cannula Nasal Cannula Oxygen Flow Rate (L/min) 5 5 08/19/24 12:24 08/19/24 12:35 08/19/24 13:16 Temperature 99.2 F H Temperature Source Oral Pulse Rate 116 H 120 H 122 H Respiratory Rate 20 H 20 H 29 H Blood Pressure 146/66 H 132/67 H Blood Pressure Mean 92 88 Pulse Ox 90 92 Oxygen Delivery Method Nasal Cannula Nasal Cannula Oxygen Flow Rate (L/min) 5 5 08/19/24 13:41 Temperature 99.2 F H Temperature Source Pulse Rate 115 H Respiratory Rate 28 H Blood Pressure 128/64 H Blood Pressure Mean 85 Pulse Ox 91 Oxygen Delivery Method Oxygen Flow Rate (L/min) Positive obese Nutritional Appearance: obese MDM MDM Lab Data Labs: Laboratory Results - last 24 hr 08/19/24 08/19/24 12:10 12:30 WBC 17.7 H RBC 5.16 Hgb 15.4 Hct 44.2 MCV 85.7 MCH 29.8 MCHC 34.8 RDW Std Deviation 44.3 H RDW Coeff of Anthony 14.3 Plt Count 188 MPV 10.3 Neut % (Auto) Not Reportable Absolute Neuts (auto) 15.8 H Absolute Lymphs (auto) 1.06 Total Counted 100 Neutrophils % (Manual) 83 H Band Neutrophils % 6 H Lymphocytes % (Manual) 6 L Monocytes % (Manual) 5 Platelet Estimate ADEQUATE RBC Morphology NORM C+C Sodium 130 L Potassium 3.8 Chloride Direct 92 L Carbon Dioxide 21.9 L Anion Gap 16 H BUN 21 H Creatinine 1.20 Estim Creat Clear Calc 89.70 Est GFR (MDRD) Non-Af 68 BUN/Creatinine Ratio 17.7 Glucose 333 H Lactic Acid 2.6 H* Calcium 9.6 Radiography Diagnostic Testing: Clinical Impression(s) from Imaging Studies Chest X-Ray 08/19/24 12:12 IMPRESSION: Left lower lobe pneumonia Reading Location: [facility] EKG EKG shows a sinus tachycardia with a rate of 117 bpm, VT interval 134 ms, QRS duration 110 ms, no acute ST elevation, no acute infarct noted.: Attestation: I personally reviewed and interpreted this EKG as follows: Interpretation: Sinus Rhythm and Sinus Tachycardia Treatment and Re-Evaluation :: Differential diagnosis includes however is not limited to: Community-acquired pneumonia, PE, ACS, [place], influenza, COVID-19, RSV Patient on my initial evaluation does seem to be in mild distress, patient is tachypneic, tachycardic, fever 102. Patient is placed on 5 L nasal cannula. Patient will receive a septic workup including 2 sets of blood cultures, lactic acid. I have high suspicion for respiratory virus. Patient will receive a chest x-ray, IV fluids, Tylenol. Breathing treatments will be ordered to help with breathing. Patient reevaluation is improving. Patient's fever did decrease. Patient's chest x-ray does show a left lower lobe pneumonia. Laboratory values showed a leukocytosis with white blood count 17.7, patient's chemistries show a sodium of 130, patient's creatinine is 1.2, glucose 333, patient's lactic acid was 2.6, patient received 2 L of normal saline. At this time, patient is obese, 138.9 kg. Patient is responding well to fluids. Patient was given appropriate bolus for ideal body weight. Patient was given IV Zofran, fentanyl, as well as azithromycin, Rocephin. Patient will need to be admitted to the hospital. I will reach out to the hospitalist. Patient remained stable. Discharge Plan Triage Chief Complaint: Chest Pain ED Midlevel Provider: Haim Davidson ED Provider: Jam Moran Dx/Rx/DC Orders Clinical Impression: Community acquired pneumonia, Hypoxia, Sepsis Prescriptions: No Action amlodipine 2.5 MG tablet 2.5 mg PO DAILY Patient Comments: BLOOD PRESSURE aspirin 81 MG tablet 81 mg PO DAILY@0800 Patient Comments: [facility] metformin 1,000 MG tablet 1,000 mg PO BID Patient Comments: DIABETES gabapentin [Gralise] 300 MG tablet extended release 24 hr 600 mg PO QHS pantoprazole 40 MG tablet 40 mg PO DAILY losartan 50 MG tablet 50 mg PO DAILY hydrochlorothiazide 25 MG tablet 12.5 mg PO DAILY metoprolol tartrate 25 MG tablet 12.5 mg PO BID albuterol sulfate 1 INHALER inhaler 2 puff inhalation Q4H PRN PRN (Reason: Wheezing) Qty: 1 0RF naproxen 500 MG tablet 500 mg PO BID PRN Qty: 20 0RF glimepiride 1 mg tablet 1 mg PO BID lovastatin 40 mg tablet 80 mg PO QHS meclizine [Antivert] 25 mg tablet,chewable 25 mg PO TID PRN (Reason: dizziness) Rx Instructions: Use 3 times a day for the next 2 days. Then use as needed. Trulicity 4.5 mg/0.5 mL pen injector 4.5 mg subcut QWEEK Primary Care Provider: Marga Pérez Referrals: Marga Pérez MD [Primary Care Provider] - Print Language: Yakut Disposition Disposition: Acute Care [facility]
[2024-08-19] MEDS: Ipratropium/Albuterol Sulfate 3 ML AMPUL.NEB INHALATION ×3 (12:35→23:42)
[2024-08-19] MEDS: Albuterol 2.5 MG/3 ML VIAL.NEB. 5 MG INHALATION (12:35)
[2024-08-19 12:48] LABS: Hematocrit 44.2 % (40-54); Hemoglobin 15.4 g/dL (13.0-16.5); Mean Corp Hgb Conc 34.8 g/dL (32-36); Mean Corpuscular Hgb 29.8 pg (27.0-32.0); Mean Corpuscular Volume 85.7 fL (80-94); Mean Platelet Vol. 10.3 fl (6.2-12.0); POSITIVE DIFFERENTIAL YES; POSITIVE MORPHOLOGY YES; Platelet Count 188 K/mm3 (150-450); RBC Distribution Width CV 14.3 % (11.6-14.6); RBC Distribution Width SD 44.3 fl (35.1-43.9); Red Blood Count 5.16 M/mm3 (4.6-6.2); White Blood Count 17.7 K/mm3 (4.4-11.0)
[2024-08-19 13:03] LABS: Lactic Acid 2.6 mmol/L (0.0-2.0)
[2024-08-19 13:04] LABS: Differential Indicated MANUAL DIFF
[2024-08-19 13:06] LABS: Lymphocyte 6 % (19-41); Monocyte 5 % (0-10); Neutrophil-Band 6 % (0-5); Neutrophil-Segmented 83 % (47-70); Platelet Estimate ADEQUATE (ADEQ); Total Cells Counted 100 (MANUAL DIFF)
[2024-08-19 13:07] LABS: Absolute Lymphocyte Count 1.06 X10^3/uL (0.83-4.51); Absolute Neutrophil Count 15.8 X10^3/uL (2.0-7.7); Red Cell Morphology NORM C+C NORMAL (NORM C&C)
[2024-08-19 13:14] LABS: Anion Gap 16 (5-15); BUN 21 mg/dL (4-19); BUN/Creat Ratio 17.7 RATIO (10-20); Calcium 9.6 mg/dL (7.6-11.0); Carbon Dioxide 21.9 mmol/L (22.0-29.0); Chloride 92 mmol/L (96-108); EST Glomerular Filtration Rate 68 (>60); Glucose 333 mg/dL (70-99); Potassium 3.8 mmol/L (3.3-5.1); Sodium Level 130 mmol/L (133-145)
[2024-08-19] MEDS: Ceftriaxone 1 GM/50 ML BAG IV (13:16)
[2024-08-19] MEDS: Azithromycin 500 MG in 0.9% Normal Saline (250mL Bag) 250 ML 255 MG IV (13:31)
[2024-08-19] MEDS: Ondansetron 4 MG/2 ML Vial IV (13:36)
[2024-08-19] MEDS: fentaNYL 100 MCG/2 ML Ampul 50 MCG IV (13:36)
--- NOTE | 2024-08-19 14:32 | CT_ITS ---
PROCEDURE: CTA CHEST W/WO CONTRAST REASON FOR EXAM: Hemoptysis TECHNIQUE: CTA imaging of the chest with intravenous contrast. 3D reconstructions. COMPARISON: None. FINDINGS: Hardware: None. Lymph nodes: No mediastinal hilar or axillary lymphadenopathy. Heart: Coronary artery calcifications are noted. RV/LV Diameter Ratio: N/A Thoracic Aorta: No thoracic aortic aneurysm or dissection. Pulmonary Vessels: No evidence of acute pulmonary emboli through the major subsegmental branches. Most Proximal Level of Embolus (if embolus present): N/A Lungs and Airways: Consolidation in the lingula and left base. Mild diffuse emphysematous changes Pleura: No pleural effusion. No pneumothorax. Upper Abdomen: Visualized portions of the upper abdominal viscera are unremarkable. Bones: Bone windows are unremarkable. CT/CTA Chest W/WO Contrast IMPRESSION: 1. No CT evidence of acute pulmonary embolism 2. Lingula and left basilar pneumonia 3. Mild diffuse emphysematous changes One or more dose reduction techniques were used (e.g., Automated exposure contr ol, adjustment of the mA and/or kV according to patient size, use of iterative reconstruction technique). Reading Location: [facility]
[2024-08-19 15:07] LABS: Allen Test Positive; Base Excess 2 mmol/L (-2 to +2); Blood Gas Specimen Type ART; Mode Not entered; O2 Delivery Device Cannula; PO2 79 mmHG (75-100); SITE L Radial; SO2 95 % (95-99); Total Carbon Dioxide 29 mmol/L; pCO2 48.5 mmHg (35-45); pH 7.35 (7.35-7.45)
--- NOTE | 2024-08-19 15:50 | PCM.HP.STD ---
HPI - General General Date of Admission: 08/19/24 Date of Service: 08/19/24 Chief Complaint: Shortness of breath HPI Narrative BRAEDEN SAAVEDRA, is a 64 M who presented to the emergency department [facility] on 08/19/2024 with a chief complaint of cough and shortness of breath. Patient states over the last 3 to 4 days he has not been feeling well. He has had fevers intermittently, cough productive of sputum, general malaise, nausea, vomiting, intermittent diarrhea but none today and just not been feeling well. He had 1 episode of hemoptysis but no significant voluminous hemoptysis. Sputum was more blood-streaked. Patient states he said no known sick contacts and complains also of a headache. P.o. intake has been poor and he is not eating well in the last 3 days either. Vital signs on presentation showed a temperature of 102, heart rate 121, respiratory rate 32, blood pressure is 131/70 and pulse ox was 92% on 5 L nasal cannula. He was hypoxic and route via the squad. CBC shows marked leukocytosis with a white count of 17.7 and a left shift. Chemistry panel shows a sodium of 130 the serum bicarb of 21.9, anion gap was 16, BUN was 21 and serum creatinine is 1.2 with a baseline of 0.85-0.95. Blood glucose was markedly elevated at 333. Lactic acid was 2.6. We obtain an ABG and his pH was 7.35 with a pCO2 of 48.5 and a pO2 of 78 on 6 L nasal cannula giving him PaO2 to FiO2 ratio of 202. Chest x-ray suggested left lower lobe infiltrate. CTA of the chest shows no acute PE, mild diffuse emphysematous changes and a left basilar pneumonia. He was treated with 2 L IV fluids emergency department and placed on ceftriaxone and azithromycin after cultures were obtained. [facility] Medical History RENAE (obstructive sleep apnea) Osteoarthritis Vertigo GERD (gastroesophageal reflux disease) Hyperlipidemia Diabetic neuropathy Morbid obesity Abdominal aortic aneurysm Diabetes HTN (hypertension) Home Medications ?Medication ?Instructions ?Recorded ?Last Taken ?Type amlodipine 2.5 mg tablet 2.5 mg PO DAILY 09/30/15 10/02/15 08:00 History aspirin 81 mg tablet,delayed 81 mg PO DAILY@0800 09/30/15 04/30/18 History release metformin 1,000 mg tablet 1,000 mg PO BID 09/30/15 05/01/18 07:30 History gabapentin 300 mg tablet,extended 600 mg PO QHS 11/08/15 Unknown History release 24 hr (Gralise) pantoprazole 40 mg tablet,delayed 40 mg PO DAILY 12/06/15 Unknown History release hydrochlorothiazide 25 mg tablet 12.5 mg PO DAILY 04/29/18 Unknown History losartan 50 mg tablet 50 mg PO DAILY 04/29/18 Unknown History metoprolol tartrate 25 mg tablet 12.5 mg PO BID 04/29/18 Unknown History albuterol sulfate 90 mcg/actuation 2 puff inhalation Q4H PRN PRN 03/03/19 Unknown Rx aerosol inhaler Wheezing ##1 naproxen 500 mg tablet 500 mg PO BID PRN #20 tabs 05/17/19 Unknown Rx dulaglutide 4.5 mg/0.5 mL 4.5 mg subcut QWEEK 08/19/24 Unknown History subcutaneous pen injector (Trulicity) glimepiride 1 mg tablet 1 mg PO BID 08/19/24 Unknown History lovastatin 40 mg tablet 80 mg PO QHS cholesterol 08/19/24 Unknown History meclizine 25 mg chewable tablet 25 mg PO TID PRN dizziness 08/19/24 Unknown History (Antivert) Allergy/AdvReac Type Severity Reaction Status Date / Time lisinopril Allergy Hives Verified 12/18/22 14:03 naproxen Allergy Hives Verified 12/18/22 14:03 Family History (Updated 08/19/24 @ 16:[address] Clarita Hernandez DO) Other Diabetes Hypertension Surgical History H/O abdominal aortic aneurysm repair Social History (Updated 08/19/24 @ 16:[address] Clarita Hernandez DO) household members: spouse housing: house Smoking Status: Former smoker alcohol intake: never substance use type: does not use ROS Constitutional Constitutional: Reports anorexia, chills, fatigue, fever(s), malaise and weakness; Denies change in weight, night sweats or other Eyes Eyes: Denies blurry vision, change in eye color, change in vision, discharge from eye(s), double vision, erythema, eye pain, loss of vision or other ENT HEENT: Denies abnormal hearing, dysphagia, ear pain, epistaxis, headache(s), hearing loss, nasal congestion, nasal discharge, post nasal drip, sinus pressure, sore throat or other Cardiovascular Cardiovascular: Reports dyspnea on exertion; Denies chest pain, claudication, edema, lightheadedness, orthopnea, palpitations, paroxysmal nocturnal dyspnea, rapid heart rate, syncope or other Respiratory/Chest Respiratory/Chest: Reports cough, dyspnea, excessive phlegm production, hemoptysis, productive cough, shortness of breath at rest and shortness of breath with exertion; Denies wheezing Gastrointestinal Gastrointestinal: Reports loose stools, nausea and vomiting; Denies abdominal pain, coffee ground emesis, constipation, diarrhea, dyspepsia, hematemesis, hematochezia, melena or other Genitourinary Genitourinary: Denies burning urination, difficulty urinating, dysuria, hematuria, nocturia, urinary frequency, urinary hesitancy, urinary incontinence, urinary urgency or other Musculoskeletal Musculoskeletal: Reports myalgias; Denies arthralgias, back pain, joint pain, joint stiffness, joint swelling, neck pain or other Neurologic Neurologic: Denies abnormal gait, abnormal speech, confusion, disequilibrium, dizziness, focal weakness, headache(s), numbness, paresthesias, seizure-like activity, seizures, syncope, tingling, tremor(s) or other Psychiatric Psychiatric: Denies anxiety, depression, homicidal ideation, suicidal ideation or other Endocrine Endocrinology: Denies change in body appearance, cold intolerance, excessive sweating, heat intolerance, polydipsia, polyuria or other Hematologic/Lymphatic Hematologic/Lymphatic: Denies anemia, easy bleeding, easy bruising, lymphadenopathy or other Allergic/Immunologic Allergic/Immunologic: Denies rhinitis, hives, eczemia, asthma or other Vital Signs Vital Signs Vital Signs: 08/19/24 12:03 08/19/24 12:08 08/19/24 12:24 Temperature 102 F H 102 F H Temperature Source Oral Oral Pulse Rate 121 H 121 H Respiratory Rate 32 H 30 H Blood Pressure 131/70 H 131/70 H Blood Pressure Mean 90 90 Pulse Ox 92 90 Oxygen Delivery Method Nasal Cannula Nasal Cannula Nasal Cannula Oxygen Flow Rate (L/min) 5 5 08/19/24 12:24 08/19/24 12:35 08/19/24 13:16 Temperature 99.2 F H Temperature Source Oral Pulse Rate 116 H 120 H 122 H Respiratory Rate 20 H 20 H 29 H Blood Pressure 146/66 H 132/67 H Blood Pressure Mean 92 88 Pulse Ox 90 92 Oxygen Delivery Method Nasal Cannula Nasal Cannula Oxygen Flow Rate (L/min) 5 5 08/19/24 13:41 08/19/24 15:03 Temperature 99.2 F H 98.6 F Temperature Source Oral Pulse Rate 115 H 112 H Respiratory Rate 28 H 22 H Blood Pressure 128/64 H 118/57 L Blood Pressure Mean 85 77 Pulse Ox 91 95 Oxygen Delivery Method Nasal Cannula Oxygen Flow Rate (L/min) 6 Weight Weight: 138.9 kg Body Mass Index (BMI) 43.9 Physical Exam Const alert, oriented x3, no apparent distress and well nourished; Negative for average body habitus or healthy appearing Constitutional Narrative: Morbidly obese, white male, sitting up in bed, appears ill but not toxic, tachypneic, at bedside General Appearance: cooperative HEENT normocephalic, head/scalp atraumatic and hearing grossly normal bilaterally HEENT Narrative: Mallampati 4, mucous membranes are dry Eyes EOMs intact bilaterally and conjunctivae normal Eyes Narrative: No scleral icterus Neck supple Neck Narrative: Neck is short and thick, trachea midline, redundant soft tissue Resp No normal respiratory effort, no retractions, no use of accessory muscles and No clear to auscultation bilaterally Resp Narrative: Tachypneic, adventitious sounds in the left base to include crackles Auscultation: crackles; Negative for rhonchi or wheezes Cardio regular rhythm, S1 normal heart sound, S2 normal heart sound, no murmurs, no rub, no gallops and no clicks Cardio Narrative: Mild tachycardia GI normal to inspection, nondistended, normoactive bowel sounds, soft to palpation and non-tender GI Narrative: Left lateral abdominal incision from previous surgery well-healed, large protuberant abdomen, small umbilical hernia Extremity Extremity Narrative: Chronic lower extremity venous stasis, no cyanosis or clubbing, radial pulses are 2+ bilaterally Skin no jaundice, no petechiae and no mottling Neuro oriented x3, moves all extremities and no focal motor deficits Neuro Narrative: Appears generally weak but no focal deficits noted Speech: speech normal Psych Psych Narrative: Affect is flat but appropriate for the situation, Results Lab / Micro Data 08/19/24 12:10 08/19/24 12:10 Labs: Laboratory Results - last 24 hr 08/19/24 12:10: WBC 17.7 H, RBC 5.16, Hgb 15.4, Hct 44.2, MCV 85.7, MCH 29.8, MCHC 34.8, RDW Std Deviation 44.3 H, RDW Coeff of Anthony 14.3, Plt Count 188, MPV 10.3, Neut % (Auto) Not Reportable, Absolute Neuts (auto) 15.8 H, Absolute Lymphs (auto) 1.06, Total Counted 100, Neutrophils % (Manual) 83 H, Band Neutrophils % 6 H, Lymphocytes % (Manual) 6 L, Monocytes % (Manual) 5, Platelet Estimate ADEQUATE, RBC Morphology NORM C+C, Sodium 130 L, Potassium 3.8, Chloride Direct 92 L, Carbon Dioxide 21.9 L, Anion Gap 16 H, BUN 21 H, Creatinine 1.20, Estim Creat Clear Calc 89.70, Est GFR (MDRD) Non-Af 68, BUN/Creatinine Ratio 17.7, Glucose 333 H, Calcium 9.6 08/19/24 12:30: Lactic Acid 2.6 H* Micro: Microbiology 08/19/24 12:07 Mucosa - Nose SARS-CoV-2, Influenza & RSV (PCR) - Final ABG Data ABG results: ABG 08/19/24 15:04 Specimen Type ART Sample Site L Radial pH 7.35 Bicarbonate Actual 27.0 H Total CO2 29 Base Excess 2 O2 Saturation 95 O2 % 6.0 ABG pCO2 48.5 H ABG pO2 79 Yasir Test Positive O2 Delivery Device Cannula Vent Mode Not entered Imaging Radiology Impression Chest X-Ray 08/19/24 12:12 IMPRESSION: Left lower lobe pneumonia Reading Location: [facility] Chest CTA 08/19/24 14:32 IMPRESSION: 1. No CT evidence of acute pulmonary embolism 2. Lingula and left basilar pneumonia 3. Mild diffuse emphysematous changes One or more dose reduction techniques were used (e.g., Automated exposure control, adjustment of the mA and/or kV according to patient size, use of iterative reconstruction technique). Reading Location: [facility] Assessment & Plan Assessment/Plan (1) Sepsis: (2) Hypoxia: (3) Community acquired pneumonia: (4) Lactic acidosis: PLAN: Plan Sepsis secondary to left lower lobe community-acquired pneumonia -Patient meets sepsis criteria with lactic acid and PaO2 to FiO2 gradient less than 300 -Patient also with fever, significant leukocytosis, tachycardia, tachypnea -Fluid bolus given at 4.5 L to equate 30 cc/kg body weight -Cultures obtained -Broad-spectrum antibiotics to cover commune acquired pneumonia with ceftriaxone and azithromycin -Check strep pneumo and Legionella antigens -Check sputum culture -Mucinex -Scheduled and as needed nebulizers -Incentive spirometer -[place] Acute hypoxic respiratory failure secondary to left lower lobe pneumonia -Patient not oxygen dependent at baseline currently requiring 6 L -Significant PaO2 to FiO2 ratio -Patient tachypneic and tachycardic -Continue oxygen at 6 L and wean as able Will need ambulatory pulse ox prior to discharge -BiPAP with naps and nocturnally Lactic acidosis -Secondary to above -Cycle per protocol DM-2 with resultant hyperglycemia -Likely hyperglycemic secondary to acute illness -Will schedule some basal insulin at 15 units nightly -SSI -Accu-Cheks as ordered -Cardiac/carb controlled diet -Hold home oral agents Essential hypertension/hyperlipidemia -Continue home statin -Blood pressures are low normal -Hold HCTZ -Hold losartan -Continue home metoprolol 12.5 mg p.o. twice daily -As needed hydralazine for systolic pressure greater than 160 GERD -Continue home PPI Diabetic neuropathy -Continue home gabapentin History of AAA -Repair in 2017 -Stable RENAE -Previously diagnosed but does have upcoming polysomnography -Will utilize BiPAP at at bedtime and with naps while hospitalized especially with pneumonia Morbid obesity -BMI is 43.9 -Recommend weight loss -Complicates treatment, prognosis, outcomes History of tobacco abuse -remote DVT prophylaxis -40 mg Lovenox SQ twice daily due to body habitus greater than 40 BMI CODE STATUS -Full code Sepsis Attestation Sepsis Attestation: Agree w/Sepsis Date exam was performed: 08/19/24 Time exam was performed: 15:51 Possible Source of Sepsis: Pulmonary Sepsis Organ Dysfunction Criteria Present: Lactic Acid > 2 mmol/L and PaO2/FiO2 ratio < 300 Fluid Resuscitation Fluid resuscitation indicated?: Yes Fluid Resuscitation ordered: 30 ml/kg fluid bolus ordered Amount of fluid ordered: 4,500 Charges/Coding Visit Charges Inpatient E&M: 37325 Init Hosp L3
[2024-08-19] MEDS: Acetaminophen 325 MG Tablet 650 MG PO (17:54)
[2024-08-19] MEDS: BENZOCAINE/MENTHOL 1 LOZENGE MUCOUS MEM (17:54)
[2024-08-19] MEDS: Insulin Lispro 100 UNIT/ML INSULN.PEN SC ×2 (18:06→21:41)
[2024-08-19 18:41] LABS: Bedside Glucose 247 mg/dL (74-106)
[2024-08-19] MEDS: Metoprolol Tartrate 25 MG Tablet 12.5 MG PO (21:42)
[2024-08-19] MEDS: Insulin Glargine-YFGN 100 UNIT/ML Pen 15 UNIT SC (21:42)
[2024-08-19] MEDS: Gabapentin 600 MG Tablet PO (21:43)
[2024-08-19] MEDS: Enoxaparin 40 MG/0.4 ML Syringe SC (21:43)
[2024-08-19] MEDS: Atorvastatin Calcium 20 MG Tablet PO (21:48)
[2024-08-19 22:08] LABS: Bedside Glucose 238 mg/dL (74-106)
[2024-08-19] MEDS: guaiFENesin 1,200 MG Tablet 1200 MG PO (22:29)
[2024-08-20] VITALS (13 sets, daily range): BP systolic 119–141; BP diastolic 73–90; PULSE 74–106; RESP 12–20; TEMP 36.6–36.9; O2SAT 94–97; BMI 43.8
[2024-08-20] MEDS: Insulin Lispro 100 UNIT/ML INSULN.PEN SC ×4 (06:50→22:36)
[2024-08-20 06:55] LABS: Bedside Glucose 171 mg/dL (74-106)
[2024-08-20 07:28] LABS: Absolute Neutrophil Count 9.6 X10^3/uL (2.0-7.7); Basophil# 0.04 X10^3/uL; Basophil% 0.3 % (0-1); Eosinophil# 0.06 X10^3/uL; Eosinophils% 0.5 % (0-5); Hematocrit 39.7 % (40-54); Hemoglobin 13.1 g/dL (13.0-16.5); Lymphocyte % 8.6 % (19-41); Mean Corpuscular Hgb 29.4 pg (27.0-32.0); Mean Platelet Vol. 10.1 fl (6.2-12.0); Monocyte% 6.9 % (0-10); NRBC Flagged by Analyzer 0 % (0-5); Neutrophil # 9.56 X10^3/uL (2.7-7.7); Neutrophil % 82.5 % (47-70); Platelet Count 163 K/mm3 (150-450); RBC Distribution Width CV 14.6 % (11.6-14.6); RBC Distribution Width SD 47.8 fl (35.1-43.9); Red Blood Count 4.46 M/mm3 (4.6-6.2); White Blood Count 11.6 K/mm3 (4.4-11.0)
[2024-08-20 07:55] LABS: Magnesium 2.2 mg/dL (1.5-2.2); Phosphorus 2.1 mg/dL (2.7-4.5)
[2024-08-20 07:56] LABS: ALB/GLOB Ratio 0.9 RATIO (0.9-2.4); AST(SGOT) 23 U/L (<=37); Alanine Aminotransfer ALT/SGPT 17 U/L (<=46); Albumin, Serum 3.2 g/dL (3.4-4.8); Alkaline Phosphatase 106 U/L (40-129); Anion Gap 9 (5-15); BUN 14 mg/dL (4-19); BUN/Creat Ratio 18.1 RATIO (10-20); Calcium 9.1 mg/dL (7.6-11.0); Carbon Dioxide 23.1 mmol/L (22.0-29.0); Chloride 103 mmol/L (96-108); Creatinine, Serum 0.79 mg/dL (0.70-1.20); EST Glomerular Filtration Rate 100 (>60); Estimated Creatinine Clearance 136.25 ml/min (50-250); Globulin 3.8 g/dL (2.2-4.2); Glucose 186 mg/dL (70-99); Potassium 4.4 mmol/L (3.3-5.1); Sodium Level 135 mmol/L (133-145); Total Bilirubin 0.66 mg/dL (0.00-1.30)
[2024-08-20] MEDS: Aspirin 81 MG TAB.CHEW PO (08:13)
[2024-08-20] MEDS: Acetaminophen 325 MG Tablet 650 MG PO (08:13)
[2024-08-20 08:17] LABS: Lactic Acid < 1.0 mmol/L (0.0-2.0)
[2024-08-20] MEDS: Ceftriaxone 2 GM in 0.9% Normal Saline (50mL MB+) 50 ML IV (10:15)
[2024-08-20] MEDS: guaiFENesin 1,200 MG Tablet 1200 MG PO ×2 (10:22→22:35)
[2024-08-20] MEDS: Enoxaparin 40 MG/0.4 ML Syringe SC ×2 (10:22→22:46)
[2024-08-20] MEDS: Pantoprazole Sodium 40 MG Tablet PO (10:23)
[2024-08-20] MEDS: Metoprolol Tartrate 25 MG Tablet 12.5 MG PO ×2 (10:23→22:46)
[2024-08-20] MEDS: Azithromycin 500 MG in 0.9% Normal Saline (250mL Bag) 250 ML 255 MG IV (11:13)
[2024-08-20] MEDS: Ipratropium/Albuterol Sulfate 3 ML AMPUL.NEB INHALATION ×3 (12:12→20:21)
[2024-08-20 12:35] LABS: Bedside Glucose 248 mg/dL (74-106)
--- NOTE | 2024-08-20 14:40 | PCM.PN.HOSP ---
Reason for Visit Reason for Visit: Shortness of breath Subjective Subjective Patient states he is feeling overall much better since presenting yesterday. States his appetite starting to come back. No complaints today. I did tell him I anticipate he will likely be here at least another 48 hours. He voices understanding. Objective Data Objective Data Vital Signs: Vital Signs Temp Pulse Resp BP Pulse Ox O2 Del Method O2 Flow Rate 98.2 F 97 16 131/76 H 96 Nasal Cannula 5 08/20/24 07:58 08/20/24 12:13 08/20/24 12:13 08/20/24 07:58 08/20/24 07:58 08/20/24 08:02 08/20/24 08:02 Oxygen Flow Rate (L/min) 5 Oxygen Delivery Method Nasal Cannula Weight: 138.9 kg Body Mass Index (BMI) 43.3 Intake & Output: Intake and Output for Last 24 Hours 08/18/24 08/19/24 08/20/24 23:59 23:59 23:59 Intake Total 5545 / 5845 905 / 905 Output Total 400 / 400 Balance 5145 / 5445 905 / 905 Lab / Micro Data 08/20/24 06:30 08/20/24 06:30 Labs: Laboratory Results - last 24 hr 08/19/24 18:02: POC Glucose 247 H 08/19/24 21:40: POC Glucose 238 H 08/20/24 06:26: POC Glucose 171 H 08/20/24 06:30: WBC 11.6 H, RBC 4.46 L, Hgb 13.1, Hct 39.7 L, MCV 89.0, MCH 29.4, MCHC 33.0 D, RDW Std Deviation 47.8 H, RDW Coeff of Anthony 14.6, Plt Count 163, MPV 10.1, Immature Gran % (Auto) 1.200 H, Neut % (Auto) 82.5 H, Lymph % (Auto) 8.6 L, [place] % (Auto) 6.9, Eos % (Auto) 0.5, Baso % (Auto) 0.3, Absolute Neuts (auto) 9.6 H, Absolute Lymphs (auto) 1.00, Nucleated RBC % 0, Sodium 135, Potassium 4.4, Chloride Direct 103, Carbon Dioxide 23.1, Anion Gap 9, BUN 14, Creatinine 0.79, Estim Creat Clear Calc 136.25, Est GFR (MDRD) Non-Af 100, BUN/Creatinine Ratio 18.1, Glucose 186 H, Calcium 9.1, Phosphorus 2.1 L, Magnesium 2.2, Total Bilirubin 0.66, AST 23, ALT 17, Alkaline Phosphatase 106, Total Protein 7.0, Albumin 3.2 L, Globulin 3.8, Albumin/Globulin Ratio 0.9 08/20/24 07:35: Lactic Acid < 1.0 08/20/24 11:58: POC Glucose 248 H Micro: Microbiology 08/19/24 19:20 Sputum, Expectorated/Coughed Gram Stain - Final 08/19/24 20:16 Urine, Clean Catch Legionella Antigen - Final 08/19/24 20:16 Urine, Clean Catch Streptococcus pneumoniae Antigen (M - Final 08/19/24 12:07 Mucosa - Nose SARS-CoV-2, Influenza & RSV (PCR) - Final ABG Data ABG results: ABG 08/19/24 15:04 Specimen Type ART Sample Site L Radial pH 7.35 Bicarbonate Actual 27.0 H Total CO2 29 Base Excess 2 O2 Saturation 95 O2 % 6.0 ABG pCO2 48.5 H ABG pO2 79 Yasir Test Positive O2 Delivery Device Cannula Vent Mode Not entered Radiography Diagnostic Testing: Radiology Impression Chest CTA 08/19/24 14:32 IMPRESSION: 1. No CT evidence of acute pulmonary embolism 2. Lingula and left basilar pneumonia 3. Mild diffuse emphysematous changes One or more dose reduction techniques were used (e.g., Automated exposure control, adjustment of the mA and/or kV according to patient size, use of iterative reconstruction technique). Reading Location: [facility] Physical Exam Const alert, oriented x3, no apparent distress and well nourished; Negative for average body habitus or healthy appearing Constitutional Narrative: Morbidly obese, white male, sitting up on the edge of the bed FaceTime his grandkids, appears much better today, tachypnea has resolved, nursing at bedside General Appearance: cooperative HEENT normocephalic, head/scalp atraumatic and hearing grossly normal bilaterally HEENT Narrative: Mallampati 4, no thrush Resp normal respiratory effort, no retractions, no use of accessory muscles and clear to auscultation bilaterally Resp Narrative: Diminished but clear Auscultation: Negative for crackles, rhonchi or wheezes Cardio regular rate, regular rhythm, S1 normal heart sound, S2 normal heart sound, no murmurs, no rub, no gallops and no clicks GI normal to inspection, nondistended, normoactive bowel sounds, soft to palpation and non-tender GI Narrative: Left lateral abdominal incision from previous surgery well-healed, large protuberant abdomen, small umbilical hernia Neuro oriented x3, moves all extremities and no focal motor deficits Neuro Narrative: Appears generally weak but no focal deficits noted Speech: speech normal Psych affect normal Psych Narrative: Very pleasant, interacts appropriately Assessment & Plan Assessment/Plan (1) Sepsis: (2) Hypoxia: (3) Community acquired pneumonia: (4) Lactic acidosis: PLAN: Plan Sepsis secondary to left lower lobe community-acquired pneumonia -Patient meets sepsis criteria with lactic acid and PaO2 to FiO2 gradient less than 300 -Patient also with fever, significant leukocytosis, tachycardia, tachypnea on presentation but not resolving -Fluid bolus given at 4.5 L to equate 30 cc/kg body weight at the time of admission -Blood and sputum cultures are pending. -Sputum Gram stain shows rare gram-positive cocci -Continue ceftriaxone azithromycin for now -Strep pneumo and Legionella antigens are negative -Mucinex -Scheduled and as needed nebulizers -Incentive spirometer -[place] Acute hypoxic respiratory failure secondary to left lower lobe pneumonia -Patient not oxygen dependent at baseline currently requiring 6 L -Significant PaO2 to FiO2 ratio -Patient tachypneic and tachycardic on presentation -Was requiring as much is 6 L nasal cannula -Decreased to 5 and weaning further today -Will need ambulatory pulse ox prior to discharge -BiPAP with naps and nocturnally -Continue I-S and PEP therapy -Continue nebulizers as ordered Lactic acidosis -Resolved DM-2 with resultant hyperglycemia -Likely hyperglycemic secondary to acute illness -Fasting sugar this morning 186 -Continue 15 units of basal insulin -I will hold off on uptitrating as a suspect once his infection becomes more controlled his blood sugars should improve further -SSI -Accu-Cheks as ordered -Cardiac/carb controlled diet -Hold home oral agents Essential hypertension/hyperlipidemia -Continue home statin -Blood pressures are stabilizing but will continue to hold HCTZ and losartan for today -Continue to trend blood pressure and restart HCTZ and losartan as appropriate -Continue home metoprolol 12.5 mg p.o. twice daily -As needed hydralazine for systolic pressure greater than 160 GERD -Continue home PPI Diabetic neuropathy -Continue home gabapentin History of AAA -Repair in 2017 -Stable RENAE -Previously diagnosed but does have upcoming polysomnography -Will utilize BiPAP at at bedtime and with naps while hospitalized especially with pneumonia Morbid obesity -BMI is 43.9 -Recommend weight loss -Complicates treatment, prognosis, outcomes History of tobacco abuse -remote DVT prophylaxis -40 mg Lovenox SQ twice daily due to body habitus greater than 40 BMI CODE STATUS -Full code Sepsis Attestation Sepsis Note Date exam was performed: 08/19/24 Time exam was performed: 18:39 Sepsis Attestation: Sepsis re-evaluation was performed (Patient remained stable with fluid resuscitation and lactate improved) Charges/Coding Visit Charges Inpatient E&M: 64396 Subs Hosp L2
[2024-08-20 17:35] LABS: Bedside Glucose 189 mg/dL (74-106)
[2024-08-20 21:36] LABS: Bedside Glucose 231 mg/dL (74-106)
[2024-08-20] MEDS: Insulin Glargine-YFGN 100 UNIT/ML Pen 15 UNIT SC (22:35)
[2024-08-20] MEDS: 0.9% Saline Lock 10 ML Syringe IV (22:37)
[2024-08-20] MEDS: Gabapentin 600 MG Tablet PO (22:46)
[2024-08-20] MEDS: Atorvastatin Calcium 20 MG Tablet PO (22:46)
[2024-08-20] MEDS: BENZOCAINE/MENTHOL 1 LOZENGE MUCOUS MEM (22:46)
[2024-08-21] VITALS (10 sets, daily range): BP systolic 121–138; BP diastolic 79–88; PULSE 88–96; RESP 12–20; TEMP 36.2–37.1; O2SAT 87–98; BMI 43.4; BMI 43.7
[2024-08-21 06:29] LABS: Absolute Lymphocyte Count 0.89 X10^3/uL (0.83-4.51); Absolute Neutrophil Count 5.2 X10^3/uL (2.0-7.7); Basophil# 0.04 X10^3/uL; Basophil% 0.6 % (0-1); Eosinophil# 0.18 X10^3/uL; Eosinophils% 2.6 % (0-5); Hemoglobin 12.2 g/dL (13.0-16.5); Lymphocyte # 0.89 X10^3/ul (0.83-4.51); Lymphocyte % 13.1 % (19-41); Mean Corpuscular Volume 88.1 fL (80-94); Mean Platelet Vol. 10.2 fl (6.2-12.0); Monocyte# 0.49 X10^3/uL; Monocyte% 7.2 % (0-10); NRBC Flagged by Analyzer 0 % (0-5); Neutrophil # 5.15 X10^3/uL (2.7-7.7); Neutrophil % 75.6 % (47-70); Platelet Count 166 K/mm3 (150-450); RBC Distribution Width CV 14.2 % (11.6-14.6); RBC Distribution Width SD 45.8 fl (35.1-43.9); White Blood Count 6.8 K/mm3 (4.4-11.0)
[2024-08-21] MEDS: Insulin Lispro 100 UNIT/ML INSULN.PEN SC ×3 (06:45→16:54)
[2024-08-21 07:05] LABS: Bedside Glucose 181 mg/dL (74-106)
[2024-08-21] MEDS: Ipratropium/Albuterol Sulfate 3 ML AMPUL.NEB INHALATION (08:03)
[2024-08-21] MEDS: Metoprolol Tartrate 25 MG Tablet 12.5 MG PO ×2 (08:19→10:48)
[2024-08-21] MEDS: guaiFENesin 1,200 MG Tablet 1200 MG PO (08:20)
[2024-08-21] MEDS: Enoxaparin 40 MG/0.4 ML Syringe SC (08:20)
[2024-08-21] MEDS: Pantoprazole Sodium 40 MG Tablet PO (08:20)
[2024-08-21] MEDS: Acetaminophen 325 MG Tablet 650 MG PO (08:20)
[2024-08-21] MEDS: Aspirin 81 MG TAB.CHEW PO (08:20)
[2024-08-21] MEDS: Ceftriaxone 2 GM in 0.9% Normal Saline (50mL MB+) 50 ML IV (09:58)
[2024-08-21] MEDS: Azithromycin 500 MG in 0.9% Normal Saline (250mL Bag) 250 ML 255 MG IV (10:00)
[2024-08-21] MEDS: 0.9% Saline Lock 10 ML Syringe IV (10:00)
[2024-08-21 10:29] LABS: Anion Gap 11 (5-15); BUN 13 mg/dL (4-19); BUN/Creat Ratio 17.1 RATIO (10-20); Calcium 9.2 mg/dL (7.6-11.0); Carbon Dioxide 21.5 mmol/L (22.0-29.0); Chloride 99 mmol/L (96-108); Creatinine, Serum 0.76 mg/dL (0.70-1.20); EST Glomerular Filtration Rate 102 (>60); Estimated Creatinine Clearance 142.37 ml/min (50-250); Glucose 179 mg/dL (70-99); Phosphorus 2.1 mg/dL (2.7-4.5); Potassium 4.1 mmol/L (3.3-5.1); Sodium Level 131 mmol/L (133-145)
--- NOTE | 2024-08-21 12:05 | CASEMGMT ---
RN CM Face to Face with patient for initial transition planning/care coordination assessment. RN CM introduced self and role at [facility]. Patient lying in bed, alert and oriented. Patient willing to participate in assessment and is able to answer all questions appropriately. Care providers, pharmacy, and demographics verified. Strata: 2 PCP: [facility] Specialists: none Preferred Pharmacy: [facility] Insurance: [place] MCR Prescription Benefit: yes Living Will/HPOA: yes, ex Renetta Atkinson LNOK: Living Arrangements: Patient lives with ex in a 2 story home. Patient is independent and able to ambulate stairs. Transportation: self/exwife DME/HHC: Patient has raised toilet, cane, and glucometer. Patient has had HHC in the past. No previous SNF. Patient wishes to discharge home, denies need for home health at this time. Patient states he has no further needs or concerns at this time. CM to follow for discharge planning needs that may arise. Disposition Plan: Patient to discharge home with family support and follow-up plans in place. Charlotte WARD, RN, CM
[2024-08-21 12:08] LABS: Bedside Glucose 217 mg/dL (74-106)
--- NOTE | 2024-08-21 16:11 | PCM.DC.SUM ---
Providers Date of Admission: 08/19/24 Date of Discharge: 08/21/24 Primary Care Physician: Dr. Marga Pérez MD Reason For Visit: LEFT LOWER LOBE PNEUMONIA Diagnosis Discharge Diagnosis (1) Sepsis: Status: Acute Code(s): A41.9 - Sepsis, unspecified organism (2) Hypoxia: Status: Acute Code(s): R09.02 - Hypoxemia (3) Community acquired pneumonia: Status: Acute Code(s): J18.9 - Pneumonia, unspecified organism (4) Lactic acidosis: Status: Acute Code(s): E87.20 - Acidosis, unspecified Medications at Discharge Home Medications amlodipine 2.5 mg tablet 2.5 mg PO DAILY bp 09/30/15 aspirin 81 mg tablet,delayed release 81 mg PO DAILY@0800 preventative 09/30/15 metformin 1,000 mg tablet 1,000 mg PO BID diabetes 09/30/15 gabapentin 300 mg tablet,extended release 24 hr (Gralise) 600 mg PO QHS neuropathy 11/08/15 pantoprazole 40 mg tablet,delayed release 40 mg PO DAILY gerd 12/06/15 hydrochlorothiazide 25 mg tablet 12.5 mg PO DAILY bp 04/29/18 losartan 50 mg tablet 50 mg PO DAILY heart 04/29/18 metoprolol tartrate 25 mg tablet 12.5 mg PO BID heart 04/29/18 albuterol sulfate 90 mcg/actuation aerosol inhaler 2 puff inhalation Q4H PRN PRN Wheezing ##1 03/03/19 naproxen 500 mg tablet 500 mg PO BID PRN #20 tabs 05/17/19 dulaglutide 4.5 mg/0.5 mL subcutaneous pen injector (Trulicity) 4.5 mg subcut QWEEK diabetes 08/19/24 glimepiride 1 mg tablet 1 mg PO BID diabetes 08/19/24 lovastatin 40 mg tablet 80 mg PO QHS cholesterol 08/19/24 meclizine 25 mg chewable tablet (Antivert) 25 mg PO TID PRN dizziness 08/19/24 cefdinir 300 mg capsule 300 mg PO BID #14 caps 08/21/24 doxycycline hyclate 100 mg tablet 100 mg PO BID #14 tabs 08/21/24 Hospital Course Operations None Procedures None Summary of Care Provided Minutes Spent on Discharge: 51 Hospital Course: Patient is a 64-year-old male with a past medical history as outlined was admitted through the ED on 08/19/2024 with complaint of shortness of breath and cough. Symptoms have been going on for about 3 to 4 days prior to admission and he had assisted intermittent fever and generalized malaise as well as nausea and vomiting. He said he had noticed that his sputum had also been blood-streaked. On admission temperature was 102 Fahrenheit with heart rate of 121 and respirate rate of 32. He was saturating at 92% on 5 L of oxygen. CBC showed WBC of 17.7 with a left shift. Chemistry was significant for sodium of 130 and anion gap of 16 as well as creatinine of 1.2. Lactic acid was 2.6. ABG done showed pH of 7.35 with pCO2 of 48.5 and pO2 of 78 was on 6 L of oxygen. Chest x-ray showed a left lower lobe infiltrate. CT of the chest showed no evidence of PE and showed mild diffuse emphysematous changes and left basilar pneumonia. He was hydrated with IV fluids and started on IV ceftriaxone and azithromycin and admitted to be managed for hypoxia and sepsis due to left lower lobe pneumonia. Urine for strep and Legionella antigens were negative. Patient's breathing improved and he was weaned off of oxygen onto room air. Sputum cultures grew Staph aureus. Urine for strep and Legionella were negative. Patient felt much better on 08/21/2024. Patient requested to be discharged home. He had walking pulse ox which showed that he became transiently hypoxic with ambulation but quickly recovered. Patient did have a history of sleep apnea as well as likely obesity hypoventilation syndrome in light of BMI of 43.7. His WBC had trended down to 6.8 patient was not willing to stay another day. In light of his improvement, patient was discharged home on 08/21/2024 on p.o. cefdinir and p.o. doxycycline for 7-day course. He is follow-up with his primary care doctor within 1 to 2 weeks. He was discharged with a prescription for 2 L of oxygen to use for shortness of breath as needed during the day. Patient seen and examined prior to discharge. He felt much better and was eager to be discharged home. Previous times otherwise negative. Labs and vitals reviewed. Medication reviewed and reconciled. I have reviewed the oxygen testing, and this patient qualifies for the home equipment and portability. The patient is mobile in the home and the community. Physical Exam Const alert, oriented x3 and no apparent distress Constitutional Narrative: class III obesity General Appearance: cooperative and comfortable Orientation / Consciousness: awake Exam Limitations: no limitations HEENT normocephalic, head/scalp atraumatic, hearing grossly normal bilaterally, moist oral mucous membranes and oropharynx normal Mouth: oral and palatal mucosa normal Eyes PERRL, EOMs intact bilaterally and conjunctivae normal Neck no lymphadenopathy and supple Resp normal respiratory effort, no retractions, no use of accessory muscles and clear to auscultation bilaterally GI normal to inspection, nondistended, normoactive bowel sounds, soft to palpation, non-tender and non-distended Extremity normal to inspection, full ROM and no clubbing, cyanosis or edema Skin no rashes or lesions noted Neuro oriented x3, CN's II-XII intact bilaterally, moves all extremities and no focal motor deficits Sensorium / Orientation: awake Motor Exam: strength 5/5 throughout Psych affect normal Weight / BMI Weight Weight: 309 lb 1.409 oz Body Mass Index (BMI) 43.7 ABG / Lab / Microbiology Data 08/21/24 05:20 08/21/24 05:20 Laboratory: Laboratory Results - last 24 hr 08/20/24 17:17: POC Glucose 189 H 08/20/24 21:14: POC Glucose 231 H 08/21/24 05:20: WBC 6.8, RBC 4.20 L, Hgb 12.2 L, Hct 37.0 L, MCV 88.1, MCH 29.0, MCHC 33.0, RDW Std Deviation 45.8 H, RDW Coeff of Anthony 14.2, Plt Count 166, MPV 10.2, Immature Gran % (Auto) 0.900, Neut % (Auto) 75.6 H, Lymph % (Auto) 13.1 L, [place] % (Auto) 7.2, Eos % (Auto) 2.6, Baso % (Auto) 0.6, Absolute Neuts (auto) 5.2, Absolute Lymphs (auto) 0.89, Nucleated RBC % 0, Sodium Cancelled 08/21/24 05:20: Sodium 131 L, Potassium Cancelled 08/21/24 05:20: Potassium 4.1, Chloride Direct Cancelled 08/21/24 05:20: Chloride Direct 99, Carbon Dioxide Cancelled 08/21/24 05:20: Carbon Dioxide 21.5 L, Anion Gap Cancelled 08/21/24 05:20: Anion Gap 11, BUN Cancelled 08/21/24 05:20: BUN 13, Creatinine Cancelled 08/21/24 05:20: Creatinine 0.76, Estim Creat Clear Calc Cancelled 08/21/24 05:20: Estim Creat Clear Calc 142.37, Est GFR (MDRD) Non-Af Cancelled 08/21/24 05:20: Est GFR (MDRD) Non-Af 102, BUN/Creatinine Ratio Cancelled 08/21/24 05:20: BUN/Creatinine Ratio 17.1, Glucose Cancelled 08/21/24 05:20: Glucose 179 H, Calcium Cancelled 08/21/24 05:20: Calcium 9.2, Phosphorus Cancelled 08/21/24 05:20: Phosphorus 2.1 L 08/21/24 06:43: POC Glucose 181 H 08/21/24 11:28: POC Glucose 217 H Microbiology: Microbiology 08/19/24 20:16 Urine, Clean Catch Legionella Antigen - Final 08/19/24 20:16 Urine, Clean Catch Streptococcus pneumoniae Antigen (M - Final 08/19/24 19:20 Sputum, Expectorated/Coughed Gram Stain - Final 08/19/24 19:20 Sputum, Expectorated/Coughed Respiratory Culture - Preliminary Staphylococcus aureus 08/19/24 13:10 Blood Culture (Wb) - Anticubital Right Blood Culture - Preliminary No growth in 48 hours. 08/19/24 12:30 Blood Culture (Wb) - Anticubital Left Blood Culture - Preliminary No growth in 48 hours. 08/19/24 12:07 Mucosa - Nose SARS-CoV-2, Influenza & RSV (PCR) - Final D/C Instructions Discharge Diet: Low fat / Low cholesterol Discharge Activity: Return to Normal Activity Weight Bearing Status: Weight bearing as tolerated Call your doctor if you observe: Fever of 101 or Higher, Shortness of breath, Dizziness, Swelling in the ankles and Chest pain DC O2, CPAP, BIPAP Needs PSN CPAP & BiPAP: BiPAP & CPAP Settings per PSN Mode BiPAP 08/21/24 04:27 Bipap Delivery Device Face Mask 08/21/24 04:27 BiPAP Inspiratory Pressure 13 03/03/25 04:27 BiPAP Expiratory Pressure 9 08/21/24 04:27 BiPAP Rate 12 08/21/24 04:27 Total Flow Rate 4 08/21/24 04:27 Home O2 Discharge instructions: Yes Type of respiratory needs?: Oxygen (2) Oxygen frequency: With Ambulation Oxygen liters per minute during Ambulation: 2 DC home with Oxygen: Yes Home O2 MD Review: I have reviewed the oxygen testing, and the patient qualifies for home oxygen equipment and portability. The patient is mobile in the home and the community. Meaningful Use Info Meaningful Use Meaningful Use Diagnoses (Choose all that apply): None applicable Ischemic Stroke Statin Dosing Therapy Reference: STATIN DOSE THERAPY REFERENCE: * Patients > 75 years receive moderate or high dose statin therapy. * Patients 75 years or YOUNGER should receive HIGH intensity statin dose unless contraindicated. You will be required to document reason for non-treatment if statin daily dose does not meet guidelines. HIGH DOSE STATIN THERAPY DAILY Atorvastatin > than or = to 40 mg Rosuvastatin > than or = to 20 mg Amlodipine + Atorvastatin > than or = to 2.5/40 mg Ezetimibe + Simvastatin 10/80 mg Simvastatin 80mg Discharge Plan Admission Admit Date/Time: 08/19/24 15:52 Primary Reason for Your Visit: pneumonia Attending Provider: Allison Perez Primary Care Provider: Marga Pérez Consulting Providers: Clarita Hernandez Instructions Patient Instructions: ED Pneumonia (Adult) Additional Instructions / Restrictions: use oxygen 2L for shortness of breath as needed. Discharge Orders/Prescriptions Prescriptions: New doxycycline hyclate 100 mg tablet 100 mg PO BID Qty: 14 0RF cefdinir 300 mg capsule 300 mg PO BID Qty: 14 0RF Continued amlodipine 2.5 MG tablet 2.5 mg PO DAILY Patient Comments: BLOOD PRESSURE aspirin 81 MG tablet 81 mg PO DAILY@0800 Patient Comments: HEART HEALTH metformin 1,000 MG tablet 1,000 mg PO BID Patient Comments: DIABETES gabapentin [Gralise] 300 MG tablet extended release 24 hr 600 mg PO QHS pantoprazole 40 MG tablet 40 mg PO DAILY losartan 50 MG tablet 50 mg PO DAILY hydrochlorothiazide 25 MG tablet 12.5 mg PO DAILY metoprolol tartrate 25 MG tablet 12.5 mg PO BID albuterol sulfate 1 INHALER inhaler 2 puff inhalation Q4H PRN PRN (Reason: Wheezing) Qty: 1 0RF naproxen 500 MG tablet 500 mg PO BID PRN Qty: 20 0RF glimepiride 1 mg tablet 1 mg PO BID lovastatin 40 mg tablet 80 mg PO QHS meclizine [Antivert] 25 mg tablet,chewable 25 mg PO TID PRN (Reason: dizziness) Rx Instructions: Use 3 times a day for the next 2 days. Then use as needed. Trulicity 4.5 mg/0.5 mL pen injector 4.5 mg subcut QWEEK Referrals / Follow Up: Marga Pérez MD [Primary Care Provider] - Within 1 Week Disposition Disposition (needs filled in before D/C Order can be placed): Home, Self Care Charges/Coding Visit Charges Inpatient E&M: 06856 Disch Hosp >30min
--- NOTE | 2024-08-21 16:17 | CASEMGMT ---
MELANIE spoke with patient and he is agreeable to [employer] as they have used them in the past. MELANIE notified RN CM. Edwige Jackson [employer] YAA
--- NOTE | 2024-08-21 16:50 | CASEMGMT ---
Patient has order for discharge. Patient qualifies for home oxygen, script received. RN CM in to discuss needs at discharge. Patient prefers [facility] for home oxygen setup. Patient denied further needs or concerns at discharge. RN CM sent referral to [facility] via [facility] and arrange for tank to be delivered to room prior to discharge. RN CM updated discharge plan.
[2024-08-21 17:27] LABS: Bedside Glucose 188 mg/dL (74-106)
== END 2024-08-21 18:12 | disposition home or self-care (01) | DRG 871 ==
LOC: ED 13:59 → PCU 16:38
PROVIDERS: Internal Medicine; Nurse Practitioner; Admitting Provider Internal Medicine; Emergency Provider Emergency Medicine; PCP Internal Medicine; Visit Provider Student in an Organized Health Care Education/Training Program
DX: A41.01 Sepsis due to Methicillin susceptible Staphylococcus aureus (principal); J96.01 Acute respiratory failure with hypoxia; J15.211 Pneumonia due to Methicillin susceptible Staphylococcus aureus; E87.20 Acidosis, unspecified; E66.2 Morbid (severe) obesity with alveolar hypoventilation; Z68.41 Body mass index [BMI] 40.0-44.9, adult; E11.40 Type 2 diabetes mellitus with diabetic neuropathy, unspecified; I10 Essential (primary) hypertension; I71.40 Abdominal aortic aneurysm, without rupture, unspecified; E78.5 Hyperlipidemia, unspecified; K21.9 Gastro-esophageal reflux disease without esophagitis; E11.65 Type 2 diabetes mellitus with hyperglycemia; Z98.890 Other specified postprocedural states; Z79.82 Long term (current) use of aspirin; Z79.899 Other long term (current) drug therapy; Z79.84 Long term (current) use of oral hypoglycemic drugs; Z79.85 Long-term (current) use of injectable non-insulin antidiabetic drugs; Z87.891 Personal history of nicotine dependence
CPT/HCPCS: 36415; 36600; 71045; 71275; 80048; 80053; 82803; 82962; 83605; 83735; 84100; 85025; 87040; 87070; 87077; 87186; 87205; 87449; 87631; 93005; 94002; 94003; 94640; 94668; 97802; 99285; Q9967; A4216; J0696; J2405

== ENCOUNTER → 2024-11-21 | Outpatient (CLI) | payer MEDICARE, SELFPAY | END | disposition home or self-care (01) | LOC: SL 19:59 | PROVIDERS: PCP Internal Medicine; Referring Provider Nurse Practitioner; Visit Provider Nurse Practitioner | DX: G47.33 Obstructive sleep apnea (adult) (pediatric) (principal); G47.34 Idiopathic sleep related nonobstructive alveolar hypoventilation | CPT/HCPCS: 95811 ==

== ENCOUNTER → 2025-01-04 | Outpatient (CLI) | payer OTHER, SELFPAY | END | disposition home or self-care (01) | LOC: SL 11:19 | PROVIDERS: PCP Internal Medicine; Referring Provider Nurse Practitioner; Visit Provider Nurse Practitioner | DX: Z46.89 Encounter for fitting and adjustment of other specified devices (principal) ==